=== PATIENT | male | born 1955 | race Caucasian/White ===

== ENCOUNTER → 2018-06-22 10:14 | Outpatient (CLI) | payer MEDICARE, MEDICAID, SELFPAY ==
[2018-06-22 12:43] LABS: Absolute Lymphocyte Count 1.28 X10^3/ul (0.83-4.51); Absolute Neutrophil Count 5.1 X10^3/uL (2.0-7.7); Basophil# 0.03 X10^3/uL; Basophil% 0.4 % (0-1); Eosinophil# 0.28 X10^3/uL; Eosinophils% 3.8 % (0-5); Hematocrit 46.9 % (40-54); Hemoglobin 15.4 g/dl (13.0-16.5); Lymphocyte # 1.28 X10^3/ul (4.0); Lymphocyte % 17.3 % (19-41); Mean Corp Hgb Conc 32.8 g/gl (32-36); Mean Corpuscular Hgb 30.1 pg (27.0-32.0); Mean Corpuscular Volume 91.6 fL (80-94); Mean Platelet Vol. 9.4 fl (6.2-12.0); Monocyte# 0.73 X10^3/uL; Monocyte% 9.8 % (0-10); Neutrophil # 5.09 X10^3/uL (2.7-7.7); Neutrophil % 68.6 % (47-70); POSITIVE COUNT NO; POSITIVE DIFFERENTIAL NO; POSITIVE MORPHOLOGY NO; Platelet Count 263 K/mm3 (150-450); RBC Distribution Width CV 12.8 % (11.6-14.6); RBC Distribution Width SD 43.1 fl (35.1-43.9); Red Blood Count 5.12 M/mm3 (4.6-6.2); White Blood Count 7.4 K/mm3 (4.4-11.0)
[2018-06-22 12:57] LABS: Microalbumin,Random Urine 6.4 mg/L (NO RANGE EST.); Microalbumin:Creatinine Ratio 14.1 mg/g CRE (<30 mg/g CRE)
[2018-06-22 13:42] LABS: AST(SGOT) 15 U/L (15-37); Alanine Aminotransfer ALT/SGPT 30 U/L (16-61); Albumin, Serum 3.9 g/dL (3.2-5.0); Alkaline Phosphatase 61 U/L (45-117); Anion Gap 11 (5-15); BUN 18 mg/dL (7-18); BUN/Creat Ratio 20.2 RATIO (10-20); Calcium,Total 8.9 mg/dL (8.5-10.1); Chloride 104 mmol/L (98-107); Cholesterol 234 mg/dL (200); Creatinine, Serum 0.89 mg/dL (0.70-1.30); EST Glomerular Filtration Rate 91 mL/min (>60); Est Glom Filt Rate - Afr Amer 110 mL/min (>60); Globulin 3.8 g/dL (2.2-4.2); Glucose 107 mg/dL (74-106); High Density Lipoprotein 63 mg/dL; PSA,Total - Annual Screen 4.06 ng/mL (0.00-4.00); Protein, Total 7.7 g/dL (6.4-8.2); Sodium Level 139 mmol/L (136-145); Triglycerides 142 mg/dL; Very Low Density Lipoprotein 28 mg/dL (5-40)
== END ==
LOC: LAB.FUTURE 07-30 09:53 → BFHLAB 08-31 11:37
PROVIDERS: Family Provider Family Medicine; PCP Family Medicine; Visit Provider Family Medicine
DX: I10 Essential (primary) hypertension (principal); E78.5 Hyperlipidemia, unspecified; Z12.5 Encounter for screening for malignant neoplasm of prostate
CPT/HCPCS: 36415; 80053; 80061; 82043; 82570; 84153; 85025; G0103

== ENCOUNTER → 2019-09-25 09:23 | Outpatient (CLI) | payer MEDICARE, SELFPAY ==
[2019-09-25 13:08] LABS: Absolute Lymphocyte Count 1.69 X10^3/uL (0.83-4.51); Absolute Neutrophil Count 5.7 X10^3/uL (2.0-7.7); Basophil# 0.05 X10^3/uL; Basophil% 0.6 % (0-1); Eosinophil# 0.44 X10^3/uL; Eosinophils% 4.9 % (0-5); Hematocrit 46.3 % (40-54); Lymphocyte # 1.69 X10^3/ul (4.0); Lymphocyte % 18.8 % (19-41); Mean Corp Hgb Conc 32.4 g/dL (32-36); Mean Corpuscular Hgb 30.5 pg (27.0-32.0); Mean Corpuscular Volume 94.1 fL (80-94); Mean Platelet Vol. 9.4 fl (6.2-12.0); Monocyte# 1.01 X10^3/uL; Monocyte% 11.3 % (0-10); NRBC Flagged by Analyzer 0 % (0-5); Neutrophil # 5.73 X10^3/uL (2.7-7.7); Neutrophil % 63.8 % (47-70); Platelet Count 279 K/mm3 (150-450); RBC Distribution Width CV 12.4 % (11.6-14.6); RBC Distribution Width SD 42.7 fl (35.1-43.9); Red Blood Count 4.92 M/mm3 (4.6-6.2)
[2019-09-25 13:33] LABS: AST(SGOT) 12 U/L (15-37); Alanine Aminotransfer ALT/SGPT 26 U/L (16-61); Albumin, Serum 3.6 g/dL (3.2-5.0); Alkaline Phosphatase 59 U/L (45-117); Anion Gap 5 (5-15); BUN 28 mg/dL (7-18); BUN/Creat Ratio 26.7 RATIO (10-20); Calcium,Total 9.2 mg/dL (8.5-10.1); Chloride 107 mmol/L (98-107); Cholesterol 218 mg/dL (200); Creatinine, Serum 1.05 mg/dL (0.70-1.30); EST Glomerular Filtration Rate 75 mL/min (>60); Est Glom Filt Rate - Afr Amer 91 mL/min (>60); Globulin 3.6 g/dL (2.2-4.2); Glucose 105 mg/dL (74-106); High Density Lipoprotein 59 mg/dL; PSA,Total - Annual Screen 5.23 ng/mL (0.00-4.00); Potassium 4.2 mmol/L (3.5-5.1); Protein, Total 7.2 g/dL (6.4-8.2); Sodium Level 140 mmol/L (136-145); Triglycerides 151 mg/dL; Very Low Density Lipoprotein 30 mg/dL (5-40)
== END ==
PROVIDERS: PCP Family Medicine; Visit Provider Family Medicine
DX: I10 Essential (primary) hypertension (principal); E78.5 Hyperlipidemia, unspecified; Z12.5 Encounter for screening for malignant neoplasm of prostate
CPT/HCPCS: 36415; 80053; 80061; 84153; 85025; G0103

== ENCOUNTER → 2022-03-31 | Outpatient (CLI) | payer MEDICARE, SELFPAY ==
[2022-03-31 10:19] LABS: Absolute Lymphocyte Count 1.59 X10^3/uL (0.83-4.51); Absolute Neutrophil Count 4.4 X10^3/uL (2.0-7.7); Basophil# 0.04 X10^3/uL; Basophil% 0.6 % (0-1); Eosinophil# 0.35 X10^3/uL; Eosinophils% 4.9 % (0-5); Hemoglobin 15.1 g/dL (13.0-16.5); Lymphocyte # 1.59 X10^3/ul (0.83-4.51); Lymphocyte % 22.1 % (19-41); Mean Corp Hgb Conc 32.8 g/dL (32-36); Mean Corpuscular Hgb 30.1 pg (27.0-32.0); Mean Corpuscular Volume 91.8 fL (80-94); Mean Platelet Vol. 9.2 fl (6.2-12.0); Monocyte# 0.82 X10^3/uL; Monocyte% 11.4 % (0-10); NRBC Flagged by Analyzer 0 % (0-5); Neutrophil # 4.38 X10^3/uL (2.7-7.7); Neutrophil % 60.6 % (47-70); Platelet Count 271 K/mm3 (150-450); RBC Distribution Width CV 12.8 % (11.6-14.6); RBC Distribution Width SD 42.8 fl (35.1-43.9); Red Blood Count 5.01 M/mm3 (4.6-6.2); White Blood Count 7.2 K/mm3 (4.4-11.0)
[2022-03-31 11:05] LABS: AST(SGOT) 13 U/L (15-37); Alanine Aminotransfer ALT/SGPT 22 U/L (16-61); Albumin, Serum 3.6 g/dL (3.2-5.0); Alkaline Phosphatase 54 U/L (45-117); Anion Gap 8 (5-15); BUN 21 mg/dL (7-18); BUN/Creat Ratio 21.9 RATIO (10-20); Calcium,Total 9.3 mg/dL (8.5-10.1); Chloride 105 mmol/L (98-107); Cholesterol 239 mg/dL (200); Creatinine, Serum 0.96 mg/dL (0.70-1.30); EST Glomerular Filtration Rate 83 mL/min (>60); Est Glom Filt Rate - Afr Amer 100 mL/min (>60); Globulin 3.6 g/dL (2.2-4.2); Glucose 109 mg/dL (74-106); High Density Lipoprotein 67 mg/dL; Potassium 3.9 mmol/L (3.5-5.1); Protein, Total 7.2 g/dL (6.4-8.2); Sodium Level 140 mmol/L (136-145); Triglycerides 138 mg/dL; Very Low Density Lipoprotein 28 mg/dL (5-40)
== END | disposition home or self-care (01) ==
PROVIDERS: PCP Family Medicine; Referring Provider Family Medicine; Visit Provider Family Medicine
DX: I10 Essential (primary) hypertension (principal); E78.5 Hyperlipidemia, unspecified; Z12.5 Encounter for screening for malignant neoplasm of prostate
CPT/HCPCS: 36415; 80053; 80061; 84153; 85025; G0103

== ENCOUNTER → 2022-10-14 | Outpatient (CLI) | payer MEDICARE, SELFPAY ==
[2022-10-14 12:41] LABS: PSA,Total- Diagnostic 9.42 ng/mL (0.0-4.0)
== END | disposition home or self-care (01) ==
LOC: BFHLAB 10:37
PROVIDERS: PCP Family Medicine; Visit Provider Family Medicine
DX: R97.20 Elevated prostate specific antigen [PSA] (principal)
CPT/HCPCS: 36415; 84153

== ENCOUNTER → 2023-06-02 | Outpatient (CLI) | payer MEDICARE, MEDICAID, SELFPAY ==
[2023-06-02 12:20] LABS: Absolute Lymphocyte Count 1.43 X10^3/uL (0.83-4.51); Absolute Neutrophil Count 4.2 X10^3/uL (2.0-7.7); Basophil# 0.04 X10^3/uL; Basophil% 0.6 % (0-1); Eosinophil# 0.33 X10^3/uL; Eosinophils% 4.8 % (0-5); Hematocrit 45.6 % (40-54); Hemoglobin 14.7 g/dL (13.0-16.5); Lymphocyte # 1.43 X10^3/ul (0.83-4.51); Lymphocyte % 20.6 % (19-41); Mean Corp Hgb Conc 32.2 g/dL (32-36); Mean Corpuscular Hgb 29.5 pg (27.0-32.0); Mean Corpuscular Volume 91.6 fL (80-94); Mean Platelet Vol. 9.5 fl (6.2-12.0); Monocyte# 0.95 X10^3/uL; Monocyte% 13.7 % (0-10); NRBC Flagged by Analyzer 0 % (0-5); Neutrophil # 4.15 X10^3/uL (2.7-7.7); Neutrophil % 59.7 % (47-70); Platelet Count 279 K/mm3 (150-450); RBC Distribution Width CV 12.9 % (11.6-14.6); RBC Distribution Width SD 42.8 fl (35.1-43.9); Red Blood Count 4.98 M/mm3 (4.6-6.2); White Blood Count 6.9 K/mm3 (4.4-11.0)
[2023-06-02 12:53] LABS: ALB/GLOB Ratio 0.9 RATIO (0.9-2.4); AST(SGOT) 14 U/L (15-37); Alanine Aminotransfer ALT/SGPT 29 U/L (16-61); Albumin, Serum 3.6 g/dL (3.2-5.0); Alkaline Phosphatase 54 U/L (45-117); Anion Gap 6 (5-15); BUN 19 mg/dL (7-18); BUN/Creat Ratio 19.4 RATIO (10-20); Calcium,Total 9.1 mg/dL (8.5-10.1); Chloride 106 mmol/L (98-107); Cholesterol 241 mg/dL (200); Creatinine, Serum 0.98 mg/dL (0.70-1.30); EST Glomerular Filtration Rate 81 mL/min (>60); Est Glom Filt Rate - Afr Amer 97 mL/min (>60); Globulin 3.8 g/dL (2.2-4.2); Glucose 102 mg/dL (74-106); High Density Lipoprotein 62 mg/dL; PSA,Total - Annual Screen 9.04 ng/mL (0.00-4.00); Potassium 4.2 mmol/L (3.5-5.1); Protein, Total 7.4 g/dL (6.4-8.2); Sodium Level 139 mmol/L (136-145); Triglycerides 149 mg/dL; Very Low Density Lipoprotein 30 mg/dL (5-40)
== END | disposition home or self-care (01) ==
LOC: BFHLAB 10:15
PROVIDERS: PCP Family Medicine; Visit Provider Family Medicine
DX: I10 Essential (primary) hypertension (principal); E78.5 Hyperlipidemia, unspecified; Z12.5 Encounter for screening for malignant neoplasm of prostate
CPT/HCPCS: 36415; 80053; 80061; 84153; 85025; G0103

== ENCOUNTER 2024-11-02 07:41 | Emergency (ER) | payer MEDICARE, MEDICAID, SELFPAY ==
[2024-11-02 07:42] VITALS: BP 174/112; PULSE 93; RESP 18; TEMP 36.4; O2SAT 100; BMI 29.2
--- NOTE | 2024-11-02 07:55 | EDS_ITS ---
HPI History of Present Illness Chief Complaint: Complaint Detail of Chief Complaint: Urinary retention Informant: patient Narrative Narrative: Patient presents to the emergency department complaint of inability urinate since around 11 PM last night. Patient has not had this issue before. Denies recent illness. Describes lower abdominal discomfort. He denies fever or dysuria. [facility] Medical History (Updated 11/02/24 @ 09:[address] Duran Fabian, DO) Hypertension Home Medications ?Medication ?Instructions ?Recorded ?Last Taken ?Type azelastine 0.05 % eye drops 1 drp ophthalmic (eye) BID 11/02/24 Unknown History lisinopril 40 mg tablet 40 mg PO DAILY 11/02/24 03/2 0 History metoprolol succinate 100 mg 100 mg PO DAILY 11/02/24 0 11/01/24 History tablet,extended release 24 hr
--- NOTE | 2024-11-02 07:55 | EX.ED.GUMALE ---
HPI History of Present Illness Chief Complaint: Complaint Detail of Chief Complaint: Urinary retention Informant: patient Narrative Narrative: Patient presents to the emergency department complaint of inability urinate since around 11 PM last night. Patient has not had this issue before. Denies recent illness. Describes lower abdominal discomfort. He denies fever or dysuria. [facility] Medical History (Updated 11/02/24 @ 09:[address] Duran Fabian, DO) Hypertension Home Medications ?Medication ?Instructions ?Recorded ?Last Taken ?Type azelastine 0.05 % eye drops 1 drp ophthalmic (eye) BID 11/02/24 Unknown History lisinopril 40 mg tablet 40 mg PO DAILY 11/02/24 11/01/24 History metoprolol succinate 100 mg 100 mg PO DAILY 11/02/24 11/01/24 History tablet,extended release 24 hr Allergy/AdvReac Type Severity Reaction Status Date / Time No Known Allergies Allergy Verified 11/02/24 09:02 Social History Smoking Status: Never smoker ROS ROS ED Review of Systems ROS Unobtainable: other Constitutional Constitutional ED: Reports lethargy; Denies chills, fever(s), sweats or weight loss Eyes Eyes: Denies blurry vision, change in vision or diplopia ENT ENT ED: Denies rhinorrhea or sore throat Cardiovascular Cardiovascular: Denies chest pain, orthopnea or racing heartbeat Respiratory/Chest Respiratory/Chest: Denies cough, dyspnea, dyspnea on exertion, orthopnea or sputum Gastrointestinal Gastrointestinal: Reports abdominal pain; Denies diarrhea, nausea or vomiting Genitourinary Genitourinary ED: Reports other Details: Urinary retention ; Denies dysuria, hematuria or urinary frequency Musculoskeletal Musculoskeletal: Denies arthralgias, back pain, myalgias or neck pain Integumentary Denies abscess, Abrasions or rash Neurologic Neurologic: Denies headache(s) or weakness Psychiatric Psychiatric: Denies anxiety, depression or suicidal thoughts Endocrine Endocrinology: Denies polydipsia, polyphagia or polyuria Hematologic/Lymphatic Hematologic/Lymphatic: Denies easy bleeding, easy bruising or lymphadenopathy Allergic/Immunologic Allergic/Immunologic ED: Denies mouth swelling, tongue swelling or urticaria EXAM Physical Exam Const Vital Signs: 11/02/24 07:42 11/02/24 09:00 11/02/24 09:01 Temperature 97.6 F L 97.9 F Temperature Source Temporal Oral Pulse Rate 93 83 84 Respiratory Rate 18 16 16 Blood Pressure 174/112 H 156/84 H 156/84 H Blood Pressure Mean 132 108 108 Pulse Ox 100 95 96 Oxygen Delivery Method Room Air Room Air Room Air Positive well nourished and well developed General Appearance ED: well developed and NAD HEENT Reports TM's clear and moist mucous membranes normocephalic and atraumatic; Negative for trauma or tenderness Tympanic Membrane ED: Yes TM's clear Eyes PERRL and EOMs intact bilaterally General Eye ED: Negative for pale conjunctiva or scleral icterus Neck no lymphadenopathy, supple and no JVD General: Negative for tenderness Chest Wall inspection of chest normal and palpation of chest normal Chest: Negative for tenderness Resp normal respiratory effort and clear to auscultation bilaterally Effort and Inspection: Negative for respiratory distress or pain with movement Auscultation: Negative for rhonchi, wheezes or diminished lung sounds Cardio regular rate, regular rhythm, S1 normal heart sound, S2 normal heart sound and no murmurs Peripheral Pulses: pulses 2+ throughout GI normal to inspection, nondistended, normoactive bowel sounds, soft to palpation, non-distended and no masses GI Narrative: Mild fullness in the suprapubic region with diffuse tenderness on exam. There is no rebound, rigidity, or peritoneal signs Back/Spine no CVA tenderness and no thoracic nor lumbar tenderness Extremity normal to inspection General Extremety ED: Negative for edema General Extremity: Negative for edema Neuro oriented x3, CN's II-XII intact bilaterally, no sensory deficits noted and gait normal Sensorium / Orientation: awake, alert, oriented to person, oriented to place and oriented to time Motor Exam: strength 5/5 throughout and strength abnormal Psych mental status grossly normal Skin no rashes or lesions noted and no wounds MDM MDM MDM Narrative Medical decision making narrative: Patient presents with inability p.m. last night. No prior history of retention. No prior episodes of retention. Tells me he had history of elevated PSA but then they were just being followed and they seem to come back down. Denies fever or urinary symptoms otherwise. No other significant complaints. Bladder scan obtained showed greater than 600 cc of urine. Patient had a Mccormick catheter placed. More than 1200 cc of urine was drained. Patient felt immediate relief. Chemistries were unremarkable. Urinalysis showed 50-100 RBCs and 10-25 WBCs without signs of infection. Urine culture sent. Patient will be given a leg bag. I suspect the microscopic hematuria likely due to bladder distention. Patient will be given a leg bag. Patient will be advised to follow-up with urology and I will give him the referral. Lab Data Labs: Laboratory Results - last 24 hr 11/02/24 11/02/24 08:10 08:11 Sodium 136 Potassium 4.1 Chloride 103 Carbon Dioxide 20.3 L Anion Gap 14 BUN 18 Creatinine 0.84 Estim Creat Clear Calc 92.20 Est GFR (MDRD) Non-Af 93 BUN/Creatinine Ratio 21.2 H Glucose 169 H Calcium 9.1 Urine Color Red Urine Clarity Turbid Urine pH 5.0 Ur Specific [place] 1.020 Urine Protein 500 H Urine Glucose (UA) Normal Urine Ketones Negative Urine Occult Blood 250 H Urine Nitrite Negative Urine Bilirubin Negative Urine Urobilinogen Normal Ur Leukocyte Esterase 100 H Urine RBC 50-100 SEEN Urine WBC 10-25 SEEN Ur Squamous Epith Cells 0 SEEN Urine Bacteria 0 SEEN Urine Mucus 0 SEEN Discharge Plan Triage Chief Complaint: Complaint ED Provider: Duran Fabian Dx/Rx/DC Orders Clinical Impression: Acute urinary retention Instructions: ED Mccormick Catheter, Care, ED Urinary Retention, Male Prescriptions: No Action azelastine 0.05 % drops 1 drp ophthalmic (eye) BID metoprolol succinate 100 mg tablet extended release 24 hr 100 mg PO DAILY lisinopril 40 mg tablet 40 mg PO DAILY Primary Care Provider: Hermann Araiza Referrals: Guilherme Skelton MD [Med Staff - Active Staff] - 3-5 Days Hermann Araiza DO [Primary Care Provider] - Print Language: Indonesian Disposition Disposition: Home, Self Care
[2024-11-02 08:16] LABS: Bacteria 0 SEEN /hpf (None Seen); Mucous, Urine 0 SEEN /hpf (<or=2+); Squamous Epithelial Cells - UA 0 SEEN /hpf (0-5)
[2024-11-02 08:22] LABS: Color, Urine Red (Yellow); Glucose, Dipstick Normal (Normal); Ketone-Dipstick Negative (Negative); Leukocyte Esterase-Dipstick 100 /ul (Negative); Nitrite-Dipstick Negative (Negative); Occult Blood-Urine 250 /ul (Negative); Protein-Dipstick 500 mg/dl (Negative); Urine Bilirubin Dipstick Negative (Negative); Urine Clarity Turbid (Clear); Urine Urobilinogen Normal (Normal)
[2024-11-02 08:28] LABS: Red Blood Cells-Urine 50-100 SEEN /hpf (0-5)
[2024-11-02 08:29] LABS: White Blood Cells 10-25 SEEN /hpf (0-5)
[2024-11-02 08:52] LABS: Anion Gap 14 (5-15); BUN 18 mg/dL (4-19); BUN/Creat Ratio 21.2 RATIO (10-20); Calcium,Total 9.1 mg/dL (7.6-11.0); Carbon Dioxide 20.3 mmol/L (21.0-32.0); Chloride 103 mmol/L (98-108); Creatinine, Serum 0.84 mg/dL (0.70-1.20); EST Glomerular Filtration Rate 93 (>60); Glucose 169 mg/dL (70-99); Potassium 4.1 mmol/L (3.3-5.1); Sodium Level 136 mmol/L (133-145)
[2024-11-02 09:00] VITALS: BP 156/84; PULSE 83; RESP 16; TEMP 36.6; O2SAT 95
[2024-11-02 09:01] VITALS: BP 156/84; PULSE 84; RESP 16; O2SAT 96
[2024-11-02 09:44] VITALS: BP 150/91; PULSE 82; RESP 16; TEMP 36.5; O2SAT 96
--- NOTE | 2024-11-02 09:44 | ED.RN ---
PT SENT HOME WITH LEG BG, NEW LEG ATTACHMENT, AND ALL NEDS TO CHANGE HIS CATH BAG NEEDED. FOLLOW UP WITH UROLOGY; ADVISED TO CALL TODAY FOR AN APPT.
== END 2024-11-02 09:45 | disposition home or self-care (01) ==
PROVIDERS: Emergency Provider Emergency Medicine; PCP Family Medicine; Visit Provider Emergency Medicine
DX: R33.9 Retention of urine, unspecified (principal); R10.9 Unspecified abdominal pain; I10 Essential (primary) hypertension
CPT/HCPCS: 51702; 80048; 81001; 99284; A4216

== ENCOUNTER 2024-11-13 05:18 | Emergency (ER) | payer MEDICARE, MEDICAID, SELFPAY ==
[2024-11-13 05:18] VITALS: BP 199/111; PULSE 103; RESP 16; TEMP 36.4; O2SAT 95; BMI 28.8
--- NOTE | 2024-11-13 05:27 | EX.ED.GUMALE ---
HPI History of Present Illness Chief Complaint: Complaint Informant: patient and spouse/S.O. Pain Onset: Today Context: Gradual Onset Timing: Continuous Current Severity: Moderate Maximum Severity: Moderate Narrative Narrative: 69-year-old male history of BPH. A week ago presented emergency department. A Mccormick catheter placed for urinary retention. It was removed by his urologist, Dr. Nicholas Skelton, yesterday which was November 12. Patient's unable to pee and is having suprapubic discomfort this morning. He said there was a small amount of blood. No prior prostate surgery or bladder surgery. He is currently on Flomax. Prior similar symptoms: Yes Recent Illness/Hospitalization: No PFSH PFS Medical History Urinary retention Hypertension Home Medications ?Medication ?Instructions ?Recorded ?Last Taken ?Type lisinopril 40 mg tablet 40 mg PO DAILY 11/02/24 11/01/24 History metoprolol succinate 100 mg 100 mg PO QHS 11/02/24 11/01/24 History tablet,extended release 24 hr ciprofloxacin HCl 500 mg tablet 500 mg PO BID 10 days #20 tabs 11/13/24 Unknown Rx (Cipro) tamsulosin 0.4 mg capsule 0.4 mg PO QHS 11/13/24 Unknown History Allergy/AdvReac Type Severity Reaction Status Date / Time No Known Allergies Allergy Verified 11/13/24 05:19 Social History Smoking Status: Never smoker ROS ROS ED ROS Narrative Denies recent illness. Constitutional Constitutional ED: Denies chills or fever(s) Eyes Eyes: Denies blurry vision ENT ENT ED: Denies ear pain Cardiovascular Cardiovascular: Denies chest pain Respiratory/Chest Respiratory/Chest: Denies cough Gastrointestinal Gastrointestinal: Denies abdominal pain, constipation, diarrhea, melena, nausea or vomiting Genitourinary Genitourinary ED: Reports hematuria and other Details: Unable to urinate. Musculoskeletal Musculoskeletal: Denies arthralgias or back pain Integumentary Denies abscess Neurologic Neurologic: Denies headache(s) Psychiatric Psychiatric: Denies anxiety Endocrine Endocrinology: Denies polydipsia Hematologic/Lymphatic Hematologic/Lymphatic: Denies easy bleeding Allergic/Immunologic Allergic/Immunologic ED: Denies mouth swelling, tongue swelling or urticaria EXAM Physical Exam Narrative Exam Narrative: 69-year-old male lying in bed. Vital signs are stable afebrile. at bedside. H EENT exam pupils round reactive light. Extra motions are intact. Neck nontender no lymphadenopathy. Lungs clear to auscultation bilaterally. Heart regular rhythm no murmur. Chest wall nontender. Abdomen suprapubic tenderness bladder distention. Bladder scan shows distended bladder 747 mL. External exam unremarkable. No gross blood. Moving all 4 extremities. Nontender no edema. Normal strength. Patient is awake alert. No focal motor deficits. Const Vital Signs: 11/13/24 05:18 Temperature 97.5 F L Temperature Source Axillary Pulse Rate 103 H Respiratory Rate 16 Blood Pressure 199/111 H Blood Pressure Mean 140 Pulse Ox 95 Positive well nourished and well developed; Negative for cachectic, contractures or unkempt General Appearance ED: well developed; Negative for unkempt, cachectic, contractures or pallor Nutritional Appearance: Negative for cachectic HEENT Reports moist mucous membranes normocephalic and atraumatic Eyes PERRL and EOMs intact bilaterally Neck no lymphadenopathy, supple and no JVD Resp normal respiratory effort and clear to auscultation bilaterally Effort and Inspection: Negative for retractions Auscultation: Negative for rales, rhonchi, wheezes or diminished lung sounds Cardio regular rate, regular rhythm, S1 normal heart sound, S2 normal heart sound and no murmurs Rate: Negative for bradycardia or tachycardic Rhythm: Negative for abnormal rhythm GI no masses; Negative for non-tender or non-distended GI Narrative: Distended bladder. Suprapubic tenderness. Palpation: soft and tender; Negative for guarding or hepatomegaly no CVA tenderness Back/Spine no CVA tenderness General Back: Negative for CVA tenderness Cervical Spine: Negative for cervical spine tenderness Thoracic Spine / Upper Back: Negative for thoracic spinal tenderness Lumbar Spine / Lower Back: Negative for lumbar spinal tenderness Extremity normal to inspection General Extremety ED: Negative for edema or tenderness General Extremity: Negative for edema Neuro oriented x3, CN's II-XII intact bilaterally, moves all extremities and no focal motor deficits Sensorium / Orientation: alert, oriented to person, oriented to place and oriented to time; Negative for orientation impaired, confused, lethargic or stuporous Motor Exam: strength 5/5 throughout Psych mental status grossly normal Appearance: Negative for unkempt Thought Process: normal thought process Thought Content: normal thought content Skin General Skin Exam: Negative for jaundice or pallor Lesions: no lesions Rashes: no rashes MDM MDM MDM Narrative Medical decision making narrative: 69-year-old male urinary retention history of BPH. Bladder scan showed about 747 mL of urine. Nurses are placed a 22 Serbian Mccormick catheter due to the blood. Will send a UA. Repeat exam patient doing well at 5:43 AM. Feels much better nurses were able to place a Mccormick catheter. He has cloudy urine there is a small amount of blood no clots. He is put out about 750 cc of urine so far. His pain is resolved. We are awaiting the urinalysis. He understands he will be discharged with a catheter in place and follow-up with his urologist. Patient is already on Flomax. Patient doing well at 6:23 AM. We went over his test results. He will be started on antibiotic. Outpatient follow-up. History & Record Review Discussion w/independent historian: Patient and Family Additional record(s) reviewed:: Prior inpatient record, Prior outpatient record, Prior ED visit and Prior labs Lab Data Attestation: I reviewed the patient's lab results. Lab results narrative: Urinalysis shows UTI. 250 occult blood. No nitrites. 50-100 red cells. Greater than 100 white cells. 2+ bacteria. Treated as a UTI. Cipro 500 twice daily. Urine culture sent. Labs: Laboratory Results - last 24 hr 11/13/24 05:34 Urine Color Yellow Urine Clarity Cloudy Urine pH 6.0 Ur Specific [place] 1.025 Urine Protein 30 H Urine Glucose (UA) Normal Urine Ketones Negative Urine Occult Blood 250 H Urine Nitrite Negative Urine Bilirubin Negative Urine Urobilinogen Normal Ur Leukocyte Esterase 500 H Urine RBC 50-100 SEEN Urine WBC >100 SEEN Ur Squamous Epith Cells 0-5 SEEN Urine Bacteria 2+ Urine Mucus 0 SEEN Discharge Plan Triage Chief Complaint: Complaint ED Provider: Evens Portillo Dx/Rx/DC Orders Clinical Impression: Acute urinary retention, History of BPH, History of hypertension, Urinary tract infection Instructions: Urinary Tract Infections in Men, ED Urinary Retention, Male Prescriptions: New ciprofloxacin HCl [Cipro] 500 mg tablet 500 mg PO BID 10 Days Qty: 20 0RF No Action metoprolol succinate 100 mg tablet extended release 24 hr 100 mg PO QHS lisinopril 40 mg tablet 40 mg PO DAILY tamsulosin 0.4 mg capsule 0.4 mg PO QHS Primary Care Provider: Hermann Araiza Referrals: Guilherme Skelton MD [Med Staff - Active Staff] - As soon as possible Hermann Araiza, [Primary Care Provider] - Activity Restrictions/Additional Instructions: Leave the catheter in place. Call and follow-up with your urologist Dr. Nicholas Skelton soon as possible. Looks like you have a urinary tract infection. Will send a urine culture. You will be started on the antibiotics Cipro 1 pill twice a day for 10 days. Your prescription was sent to [facility]. Print Language: Kyrgyz Disposition Disposition: Home, Self Care
[2024-11-13 05:39] LABS: Color, Urine Yellow (Yellow); Glucose, Dipstick Normal (Normal); Ketone-Dipstick Negative (Negative); Leukocyte Esterase-Dipstick 500 /ul (Negative); Mucous, Urine 0 SEEN /hpf (<or=2+); Nitrite-Dipstick Negative (Negative); Occult Blood-Urine 250 /ul (Negative); Protein-Dipstick 30 mg/dl (Negative); Specific Gravity, Urine 1.025 (1.002-1.030); Urine Bilirubin Dipstick Negative (Negative); Urine Clarity Cloudy (Clear); Urine Urobilinogen Normal (Normal)
[2024-11-13 06:16] LABS: Bacteria 2+ /hpf (None Seen); Red Blood Cells-Urine 50-100 SEEN /hpf (0-5); Squamous Epithelial Cells - UA 0-5 SEEN /hpf (0-5); White Blood Cells >100 SEEN /hpf (0-5)
[2024-11-13] MEDS: Ciprofloxacin 500 MG Tablet PO (06:30)
[2024-11-13 06:38] VITALS: BP 148/78; PULSE 81; RESP 16; TEMP 36.6; O2SAT 99
== END 2024-11-13 06:39 | disposition home or self-care (01) ==
PROVIDERS: Emergency Provider Emergency Medicine; PCP Family Medicine; Visit Provider Emergency Medicine
DX: N40.1 Benign prostatic hyperplasia with lower urinary tract symptoms (principal); I10 Essential (primary) hypertension; R33.8 Other retention of urine; N39.0 Urinary tract infection, site not specified
CPT/HCPCS: 51702; 81001; 99283; A4216

== ENCOUNTER 2024-12-05 05:17 | Emergency (ER) | payer MEDICARE, MEDICAID, SELFPAY ==
[2024-12-05 05:18] VITALS: BP 164/93; PULSE 89; RESP 18; TEMP 36.1; O2SAT 99
--- NOTE | 2024-12-05 06:22 | EX.ED.DYSGE1 ---
HPI History of Present Illness Chief Complaint: Mccormick C/O Informant: patient, spouse/S.O. 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 He underwent a TURP on Tuesday. He states he has had a catheter in place since that time and has been having bloody urination which he was told would be normal. However he has been noticing clots over the last 24 hours. He states that he emptied his bag last evening and then went to bed. When he woke this morning there is no urine in the bag and he was leaking around the catheter. With concern for obstruction EMS was called and he was brought in for evaluation [facility] Medical History Urinary retention Hypertension Home Medications ?Medication ?Instructions ?Recorded ?Last Taken ?Type lisinopril 40 mg tablet 40 mg PO DAILY 11/02/24 11/01/24 History metoprolol succinate 100 mg 100 mg PO QHS 11/02/24 11/01/24 History tablet,extended release 24 hr ciprofloxacin HCl 500 mg tablet 500 mg PO BID 10 days #20 tabs 11/13/24 Unknown Rx (Cipro) tamsulosin 0.4 mg capsule 0.4 mg PO QHS 11/13/24 Unknown History dutasteride 0.5 mg capsule 0.5 mg PO DAILY 12/05/24 Unknown History Allergy/AdvReac Type Severity Reaction Status Date / Time No Known Allergies Allergy Verified 12/05/24 05:17 Family History no significant family his Social History Smoking Status: Never smoker ROS ROS ED Constitutional Constitutional ED: Denies chills or fever(s) ENT ENT ED: Denies sore throat Cardiovascular Cardiovascular: Denies chest pain Respiratory/Chest Respiratory/Chest: Denies cough or dyspnea Gastrointestinal Gastrointestinal: Denies abdominal pain, diarrhea, nausea or vomiting Genitourinary Genitourinary ED: Reports hematuria and other Details: Positive catheter malfunction Musculoskeletal Musculoskeletal: Denies back pain Integumentary Denies rash Neurologic Neurologic: Denies headache(s) Hematologic/Lymphatic Hematologic/Lymphatic: Denies easy bleeding or easy bruising EXAM Physical Exam Const Vital Signs: 12/05/24 05:18 Temperature 97 F L Temperature Source Temporal Pulse Rate 89 Respiratory Rate 18 Blood Pressure 164/93 H Blood Pressure Mean 116 Pulse Ox 99 Oxygen Delivery Method Room Air Positive well nourished and well developed General Appearance ED: well developed; Negative for pallor HEENT HEENT Narrative: Normocephalic atraumatic Eyes PERRL and EOMs intact bilaterally General Eye ED: Negative for pale conjunctiva Neck supple Resp normal respiratory effort and clear to auscultation bilaterally Cardio regular rate and regular rhythm GI normal to inspection, nondistended, normoactive bowel sounds, non-tender, non-distended and no masses GI Narrative: No organomegaly noted to suggest acute urinary retention/bladder distention Auscultation: normoactive bowel sounds Palpation: soft Narrative: Mccormick catheter in place. There is blood-tinged urine leaking around the catheter insertion at the urethral meatus. Otherwise no testicular swelling or masses. No overlying soft tissue changes to suggest Elaine's gangrene. Back/Spine no CVA tenderness Extremity normal to inspection Neuro oriented x3, CN's II-XII intact bilaterally and no sensory deficits noted Sensorium / Orientation: alert Psych mental status grossly normal Skin no rashes or lesions noted General Skin Exam: Negative for jaundice or pallor MDM MDM MDM Narrative Medical decision making narrative: Patient arrived to the ER hypertensive but has a past medical history of this. He reported roughly 8 hours since he last emptied his Mccormick catheter bag. I have low concern for obstructive nephropathy as he is continuing to drain his bladder except it is now leaking around the catheter instead of flowing through it. There is high concern for obstruction secondary to clots. Therefore the catheter was flushed by the nursing staff. After doing this there was expression of multiple blood clots and after they were removed there was normal flow of urine through the catheter. Patient no longer had leakage around the catheter at the urethral meatus opening and he reported feeling much better. Therefore at this time with resolution of the obstructed Mccormick catheter there is no need for emergent urology evaluation or a Mccormick catheter replacement and he is otherwise safe for discharge History & Record Review Discussion w/independent historian: EMS personnel, Patient and Significant other Discharge Plan Triage Chief Complaint: Mccormick C/O ED Provider: David Ames Dx/Rx/DC Orders Clinical Impression: Obstructed Mccormick catheter, Hypertension, BPH (benign prostatic hyperplasia) Instructions: ED Mccormick Catheter, Care Prescriptions: No Action metoprolol succinate 100 mg tablet extended release 24 hr 100 mg PO QHS lisinopril 40 mg tablet 40 mg PO DAILY tamsulosin 0.4 mg capsule 0.4 mg PO QHS ciprofloxacin HCl [Cipro] 500 mg tablet 500 mg PO BID 10 Days Qty: 20 0RF dutasteride 0.5 mg capsule 0.5 mg PO DAILY Primary Care Provider: Heramnn Araiza Referrals: Guilherme Skelton MD [Med Staff - Active Staff] - Hermann Araiza DO [Primary Care Provider] - Activity Restrictions/Additional Instructions: Please follow-up with your urologist/surgeon as previously directed. If your catheter becomes obstructed once again please return to the ER for repeat evaluation Print Language: Azerbaijani Disposition Disposition: Home, Self Care
[2024-12-05 06:23] VITALS: BP 138/90; PULSE 73; RESP 18; TEMP 36.8; O2SAT 98
== END 2024-12-05 06:28 | disposition home or self-care (01) ==
PROVIDERS: Emergency Provider Emergency Medicine; PCP Family Medicine; Visit Provider Emergency Medicine
DX: T83.091A Other mechanical complication of indwelling urethral catheter, initial encounter (principal); R31.9 Hematuria, unspecified; R33.9 Retention of urine, unspecified; I10 Essential (primary) hypertension; N40.0 Benign prostatic hyperplasia without lower urinary tract symptoms
CPT/HCPCS: 99284

== ENCOUNTER → 2025-03-19 | Outpatient (CLI) | payer MEDICARE, MEDICAID, SELFPAY ==
[2025-03-19 13:14] LABS: PSA,Total - Annual Screen 1.25 ng/mL (0.02-4.00)
--- OUTSIDE RECORDS SUMMARY | 2025-03-19 19:00 | XMS RPT_ITS | CCD ---
Author Organization [facility] Partnership [facility] Care Team Providers Care Retail Salesworker Name Role Phone Dr. Carmen Araiza DO Primary Care Provider Dr. Duran Fabian DO Emergency Provider [phone] Carne DE LEON, Dr. Garzon Attending Provider [phone] Bandar ALEXANDER, Dr. Horner Emergency Provider Duran Fabian Attending Unavailable Carmen Araiza Primary Care Unavailable Evens Portillo Attending Unavailable Carmen Araiza Primary Care Unavailable Carmen Araiza Primary Care Unavailable David Ames Attending Unavailable ALANIS ALEXANDER, DR SANNA BAILEY Attending Maria Elena ARAIZA DO, DR CARMEN Casanova Primary Care Unavailab kurt THAPA MD, DR SANNA BAILEY Admitting Maria Elena THAPA MD, DR SANNA BAILEY Attending Maria Elena ARAIZA DO, DR CARMEN Casanova Primary Care Unavailab le Medications Current Medications Medication Drug Class(es) Dates Sig (Normalized) Sig (Original) ciprofloxacin 500 mg oral tablet (1 source) Quinolone Antimicrobial Start: 11-13-2024 take 1 tablet by mouth twice daily Ciprofloxacin Hcl (Cipro) 500 mg tablet Active 500 mg PO TWICE A DAY 03 06November 13, 2024 12:00am lisinopril 40 mg oral tablet (2 sources) Angiotensin Converting Enzyme Inhibitor Start: 11-02-2024 take 1 tablet by mouth once daily Lisinopril 40 mg tablet Active 40 mg PO DAILY November 02, 2024 12:00am 24 hr metoprolol succinate 100 mg extended release oral tablet (2 sources) beta-Adrenergic Dash Start: 11-02-2024 take 1 tablet by mouth every twenty-four hours at bedtime Metoprolol Succinate 100 mg tablet extended release 24 hr Active 100 mg PO AT BEDTIME November 02, 2024 12:00am Start: 11-02-2024 take 1 tablet by cherry th once daily Metoprolol Succinate 100 mg tablet extended release 24 hr Active 100 mg PO DAILY November 02, 2024 12:00am tamsulosin hydrochloride 0.4 mg oral capsule (1 source) alpha-Adrenergic Dash Start: 11-13-2024 take 1 capsule by mouth at bedtime Tamsulosin 0.4 mg capsule Active 0.4 mg PO AT BEDTIME November 13, 2024 12:00am Completed/Discontinued Medications Medication Drug Class(es) Dates Sig (Normalized) Sig (Original) azelastine hydrochloride 0.5 mg/ml ophthalmic solution (2 sources) Histamine-1 Receptor Antagonist Start: 11-02-2024 End: 11-13-2024 Azelastine 0.05 % drops Discontinued 1 NMA OPHTHALMIC TWICE A DAY November 02, 2024 12:00am November 13, 2024 5:22am Problems Problem Classification Problem Date Documented Da te Episodic/Chronic Essential hypertension (1 source) Essential (primary) hypertension; Translations: [Essential (primary) hypertension] Onset: 11-30-2024 Chronic Genitourinary symptoms and ill-defined conditions (5 sources) Acute retention of urine ; Translations: [Other retention of urine] Onset: 11-30-2024 11-02-2024 Episodic Hyperplasia of prostate (1 source) Benign prostatic hyperplasia with lower urinary tract symptoms; Translations: [Benign prostatic hyperplasia with lower urinary tract symptoms] Onset: 11-30-2024 Chronic Other aftercare (1 source) Encounter for therapeutic drug level monitoring; Translations: [Encounter for therapeutic drug level monitoring] Onset: 11-30-2024 Episodic Other aftercare (1 source) Other fci (current) drug therapy; Translations: [Other fci (current) drug therapy] Onset: 11-30-2024 Episodic Other circulatory disease (1 source) H/O: hypertension; Translations: [Personal history of other diseases of the circulatory system] 11-13-2024 Episodic Other male genital disorders (1 source) H/O: male genital disorder; Translations: [Personal history of other diseases of male genital organs] 11-13-2024 Episodic Screening and history of mental health and substance abuse codes (1 source) Personal history of nicotine dependence; Translations: [Personal history of nicotine dependence] Onset: 11-30-2024 Episodic Urinary tract infections (1 source) Urinary tract infectious disease; Translations: [Urinary tract infection, site not specified] 11-13-2024 Episodic Results Test Name Value Interpretation Reference Range Facility Emergency Department Summary on 12-05-2024 Emergency Department Summary [facility] Medical Records Department [address] [place] [address] Emergency Department Summary 12/05/24 MR#: [id number] Acct: [id number] Name: ANGE ZUNIGA Rep #: [id number] : 1955 69 From: David Ames DO PCP: Dr. Carmen Araiza, DO Status:REG ER Location: ED HPI History of Present Illness Chief Complaint: Mccormick C/O Informant: patient, spouse/S.O. 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 He underwent a TURP on Tuesday. He states he has had a catheter in place since that time and has been having bloody urination which he was told would be normal. However he has been noticing clots over the last 24 hours. He states that he emptied his bag last evening and then went to bed. When he woke this morning there is no urine in the bag and he was leaking around the catheter. With concern for obstruction EMS was called and he was brought in for evaluation [facility] Medical History Urinary retention Hypertension Home Medications ???Medication ???Instructions ???Recorded ???Last Taken ???Type lisinopril 40 mg tablet 40 mg PO DAILY 11/02/24 11/01/24 H istory metoprolol succinate 100 mg 100 mg PO QHS 11/02/24 11/01/24 Hi story tablet,extended release 24 hr ciprofloxacin HCl 500 mg tablet 500 mg PO BID 10 days #20 tabs 09/08 Unknown Rx (Cipro) tamsulosin 0.4 mg capsule 0.4 mg PO QHS 11/13/24 Unknown His tory dutasteride 0.5 mg capsule 0.5 mg PO DAILY 12/05/24 Unknown H istory Allergy/AdvReac Type Severity Reaction Status Date / Time No Known Allergies Allergy Verified 12/05/24 05:17 Family History no significant family his Social History Smoking Status: Never smoker ROS ROS ED Constitutional Constitutional ED: Denies chills or fever(s) ENT ENT ED: Denies sore throat Cardiovascular Cardiovascular: Denies chest pain Respiratory/Chest Respiratory/Chest: Denies cough or dyspnea Gastrointestinal Gastrointestinal: Denies abdominal pain, diarrhea, nausea or vomiting Genitourinary Genitourinary ED: Reports hematuria and other Details: Positive catheter malfunction Musculoskeletal Musculoskeletal: Denies back pain Integumentary Denies rash Neurologic Neurologic: Denies headache(s) Hematologic/Lymphatic Hematologic/Lymphatic: Denies easy bleeding or easy bruising EXAM Physical Exam Const Vital Signs: 12/05/24 05:18 Temperature 97 F L Temperature Source Temporal Pulse Rate 89 Respiratory Rate 18 Blood Pressure 164/93 H Blood Pressure Mean 116 Pulse Ox 99 Oxygen Delivery Method Room Air Positive well nourished and well developed General Appearance ED: well developed; Negative for pallor HEENT HEENT Narrative: Normocephalic atraumatic Eyes PERRL and EOMs intact bilaterally General Eye ED: Negative for pale conjunctiva Neck supple Resp normal respiratory effort and clear to auscultation bilaterally Cardio regular rate and regular rhythm GI normal to inspection, nondistended, normoactive bowel sounds, non-tender, non-distended and no masses GI Narrative: No organomegaly noted to suggest acute urinary retention/bladder distention Auscultation: normoactive bowel sounds Palpation: soft Narrative: Mccormick catheter in place. There is blood-tinged urine leaking around the catheter insertion at the urethral meatus. Otherwise no testicular swelling or masses. No overlying soft tissue changes to suggest Elaine's gangrene. Back/Spine no CVA tenderness Extremity normal to inspection Neuro oriented x3, CN's II-XII intact bilaterally and no sensory deficits noted Sensorium / Orientation: alert Psych mental status grossly normal Skin no rashes or lesions noted General Skin Exam: Negative for jaundice or pallor MDM MDM MDM Narrative Medical decision making narrative: Patient arrived to the ER hypertensive but has a past medical history of this. He reported roughly 8 hours since he last emptied his Mccormick catheter bag. I have low concern for obstructive nephropathy as he is continuing to drain his bladder except it is now leaking around the catheter instead of flowing through it. There is high concern for obstruction secondary to clots. Therefore the catheter was flushed by the nursing staff. After doing this there was expression of multiple blood clots and after they were removed there was normal flow of urine through the catheter. Patient no longer had leakage around the catheter at the urethral meatus opening and he reported feeling much better. Therefore at this time with resolution of the obstruc (more content not included)... Normal [facility] Final Surgical Pathology Rep maico 12-04-2024 Final Surgical Pathology Report . 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 RS-8 Marita Stanley, Pathologists' Sous Chef Kitchen Manager (ASCP) Performed by MARITA STANLEY MICROSCOPIC DESCRIPTION: The microscopic examination is performed, except in the case of Gross Only. Verified by Pathology Report verified by [facility] PARISH PERKINS MD Sign out Date: 12/04/2024 12:36 Performing Lab: [facility], [address] [place] [address] Pathology Dept Disclaimer If ancillary studies were utilized, the following Laboratory Developed Test (LDT) disclaimer will apply: Under CLIA requirements, [facility] Pathology Laboratory is qualified to perform high complexity testing. For all ancillary stains, positive and negative controls stain appropriately. Performance characteristics of immunohistochemical and chromogenic in-situ hybridization tests have been determined by [facility] Pathology Laboratory. These tests are used for clinical purposes, They should not be regarded as investigational or for research. . Normal [facility] .Auto Diffon 12-03-2024 Basophil, Absolute 0.1 10 3/mcL Normal 0.0-0.3 [facility] Comment on above: Performed By: #### A DIFF, ANEU, BMP, CBC, GFR #### [address] [address] Basophils/100 WBC (Bld) 0.7 % Normal 0.0-2.5 [facility] Comment on above: Performed By: #### A DIFF, ANEU, BMP, CBC, GFR #### [address] [address] Eosinophil, Absolute 0.6 10 3/mcL Normal 0.0-0.7 [facility] Comment on above: Performed By: #### A DIFF, ANEU, BMP, CBC, GFR #### [address] [address] Eosinophils/100 WBC (Bld) 5.8 % Normal 0.0-6.0 [facility] Comment on above: Performed By: #### A DIFF, ANEU, BMP, CBC, GFR #### [address] [address] Lymphocyte, Absolute 2.0 10 3/mcL Normal 0.9-4.3 [facility] Comment on above: Performed By: #### A DIFF, ANEU, BMP, CBC, GFR #### [address] [address] Lymphocytes/100 WBC (Bld) 20.8 % Normal 20.0-40.0 [facility] Comment on above: Performed By: #### A DIFF, ANEU, BMP, CBC, GFR #### [address] [address] Monocyte, Absolute 0.9 10 3/mcL Normal 0.1-1.4 [facility] Comment on above: Performed By: #### A DIFF, ANEU, BMP, CBC, GFR #### [address] [address] Monocytes/100 WBC (Bld) 9.6 % Normal 2.0-13.0 [facility] Comment on above: Performed By: #### A DIFF, ANEU, BMP, CBC, GFR #### [place] [address] Neutrophils/100 WBC (Bld) 63.1 % Normal 50.0-75.0 [facility] Comment on above: Performed By: #### A DIFF, ANEU, BMP, CBC, GFR #### [place] [address] .NEUABSon 12-03-2024 Neutrophil, Absolute 6.0 10 3/mcL Normal 2.3-8.1 [facility] Comment on above: Performed By: #### A DIFF, ANEU, BMP, CBC, GFR #### [place] [address] CBCon 12-03-2024 Erythrocyte distribution width (RBC) [Ratio] 13.7 % Normal 11.5-15.5 [facility] Comment on above: Performed By: #### A DIFF, ANEU, BMP, CBC, GFR #### [place] [address] Hematocrit (Bld) [Volume fraction] 28.0 % Low 40.0-52.0 [facility] Comment on above: Performed By: #### A DIFF, ANEU, BMP, CBC, GFR #### [place] [address] Hgb 9.7 G/dL Low 13.0-17.5 [facility] Comment on above: Performed By: #### A DIFF, ANEU, BMP, CBC, GFR #### [place] [address] MCH (RBC) [Entitic mass] 30.8 pg Normal 27.0-33.0 [facility] Comment on above: Performed By: #### A DIFF, ANEU, BMP, CBC, GFR #### [place] [address] MCHC 34.6 G/dL Normal 32.0-36.0 [facility] Comment on above: Performed By: #### A DIFF, ANEU, BMP, CBC, GFR #### [place] [address] MCV (RBC) [Entitic vol] 89.0 fL Normal 81.0-100.0 [facility] Comment on above: Performed By: #### A DIFF, ANEU, BMP, CBC, GFR #### [address] [address] Platelet 279 10 3/mcL Normal 150-450 [facility] Comment on above: Performed By: #### A DIFF, ANEU, BMP, CBC, GFR #### [address] [address] Platelet mean volume (Bld) [Entitic vol] 6.7 fL Normal 6.4-10.5 [facility] Comment on above: Performed By: #### A DIFF, ANEU, BMP, CBC, GFR #### [place] [address] RBC 3.15 10 6/mcL Low 4.50-6.00 [facility] Comment on above: Performed By: #### A DIFF, ANEU, BMP, CBC, GFR #### [address] [address] WBC 9.5 10 3/mcL Normal 4.5-10.8 [facility] Comment on above: Performed By: #### A DIFF, ANEU, BMP, CBC, GFR #### [address] [address] .Auto Diffon 12-02-2024 Basophil, Absolute 0.0 10 3/mcL Normal 0.0-0.3 [facility] Comment on above: Performed By: #### A DIFF, ANEU, CBC, BMP, GFR #### [address] [address] Basophils/100 WBC (Bld) 0.5 % Normal 0.0-2.5 [facility] Comment on above: Performed By: #### A DIFF, ANEU, CBC, BMP, GFR #### [address] [address] Eosinophil, Absolute 0.3 10 3/mcL Normal 0.0-0.7 [facility] Comment on above: Performed By: #### A DIFF, ANEU, CBC, BMP, GFR #### [address] [address] Eosinophils/100 WBC (Bld) 3.6 % Normal 0.0-6.0 [facility] Comment on above: Performed By: #### A DIFF, ANEU, CBC, BMP, GFR #### [address] [address] Lymphocyte, Absolute 1.7 10 3/mcL Normal 0.9-4.3 [facility] Comment on above: Performed By: #### A DIFF, ANEU, CBC, BMP, GFR #### [address] [address] Lymphocytes/100 WBC (Bld) 18.3 % Low 20.0-40.0 [facility] Comment on above: Performed By: #### A DIFF, ANEU, CBC, BMP, GFR #### [address] [address] Monocyte, Absolute 1.0 10 3/mcL Normal 0.1-1.4 [facility] Comment on above: Performed By: #### A DIFF, ANEU, CBC, BMP, GFR #### [address] [address] Monocytes/100 WBC (Bld) 10.2 % Normal 2.0-13.0 [facility] Comment on above: Performed By: #### A DIFF, ANEU, CBC, BMP, GFR #### [address] [address] Neutrophils/100 WBC (Bld) 67.4 % Normal 50.0-75.0 [facility] Comment on above: Performed By: #### A DIFF, ANEU, CBC, BMP, GFR #### [address] [address] .GFRon 12-02-2024 Estimated Glomerular Filtration Rate 65 ml/min/1.73sqm Normal [facility] Comment on above: Result Comment: Stages of Chronic Kidney Disease (CKD) Stage Description eGFR(ml/min/1.73 sq.m.) CKD 1 Normal kidney function or >=90 normal kindney function with possible kidney damage (ex. Proteinuria) CKD 2 Kidney damage with mild loss 60-89 of kidney function CKD 3a Mild to moderate loss of kidney 45-59 function CKD 3b Moderate to severe loss of 30-44 of kindey function CKD 4 Severe loss of kidney function 15-29 CKD 5 Kidney failure <15 Note: (go live 2024) the eGFR calculation was updated to the 2020 CKD-EPI creatinine equation without a race factor to calculate the eGFR results. Performed By: #### A DIFF, ANEU, CBC, BMP, GFR #### [address] [address] .NEUABSon 12-02-2024 Neutrophil, Absolute 6.4 10 3/mcL Normal 2.3-8.1 [facility] Comment on above: Performed By: #### A DIFF, ANEU, CBC, BMP, GFR #### [address] [address] BMPon 12-02-2024 BUN/Creatinine Ratio 28 ratio High 7-27 [facility] Comment on above: Performed By: #### A DIFF, ANEU, CBC, BMP, GFR #### [address] [address] Calcium [Mass/Vol] 8.0 mg/dL Low 8.4-10.2 [facility] Comment on above: Performed By: #### A DIFF, ANEU, CBC, BMP, GFR #### [address] [address] Chloride [Moles/Vol] 110 mmol/L High 98-107 [facility] Comment on above: Performed By: #### A DIFF, ANEU, CBC, BMP, GFR #### [address] [address] CO2 [Moles/Vol] 27 mmol/L Normal 23-31 [facility] Comment on above: Performed By: #### A DIFF, ANEU, CBC, BMP, GFR #### [address] [address] Creatinine [Mass/Vol] 1.20 mg/dL Normal 0.70-1.30 [facility] Comment on above: Result Comment: Test ing performed on Siemens Dimension EXL analyzer using a modified kinetic Reji technique. Performed By: #### A DIFF, ANEU, CBC, BMP, GFR #### [address] [address] Electrolyte Balance 3.0 mEq/L Low 4.0-15.0 [facility] Comment on above: Performed By: #### A DIFF, ANEU, CBC, BMP, GFR #### [address] [address] Glucose [Mass/Vol] 116 mg/dL High 83-110 [facility] Comment on above: Performed By: #### A DIFF, ANEU, CBC, BMP, GFR #### [address] [address] Potassium [Moles/Vol] 3.8 mmol/L Normal 3.5-5.1 [facility] Comment on above: Performed By: #### A DIFF, ANEU, CBC, BMP, GFR #### [address] [address] Sodium [Moles/Vol] 140 mmol/L Normal 136-145 [facility] Comment on above: Performed By: #### A DIFF, ANEU, CBC, BMP, GFR #### [address] [address] Urea nitrogen [Mass/Vol] 34 mg/dL High 7-18 [facility] Comment on above: Performed By: #### A DIFF, ANEU, CBC, BMP, GFR #### [address] [address] CBCon 12-02-2024 Erythrocyte distribution width (RBC) [Ratio] 13.7 % Normal 11.5-15.5 [facility] Comment on above: Performed By: #### A DIFF, ANEU, CBC, BMP, GFR #### [address] [address] Hematocrit (Bld) [Volume fraction] 26.1 % Low 40.0-52.0 [facility] Comment on above: Performed By: #### A DIFF, ANEU, CBC, BMP, GFR #### [address] [address] Hgb 8.9 G/dL Low 13.0-17.5 [facility] Comment on above: Performed By: #### A DIFF, ANEU, CBC, BMP, GFR #### [place] [address] MCH (RBC) [Entitic mass] 30.5 pg Normal 27.0-33.0 [facility] Comment on above: Performed By: #### A DIFF, ANEU, CBC, BMP, GFR #### [place] [address] MCHC 34.1 G/dL Normal 32.0-36.0 [facility] Comment on above: Performed By: #### A DIFF, ANEU, CBC, BMP, GFR #### [address] [address] MCV (RBC) [Entitic vol] 89.6 fL Normal 81.0-100.0 [facility] Comment on above: Performed By: #### A DIFF, ANEU, CBC, BMP, GFR #### [address] [address] Platelet 241 10 3/mcL Normal 150-450 [facility] Comment on above: Performed By: #### A DIFF, ANEU, CBC, BMP, GFR #### [address] [address] Platelet mean volume (Bld) [Entitic vol] 6.8 fL Normal 6.4-10.5 [facility] Comment on above: Performed By: #### A DIFF, ANEU, CBC, BMP, GFR #### [address] [address] RBC 2.91 10 6/mcL Low 4.50-6.00 [facility] Comment on above: Performed By: #### A DIFF, ANEU, CBC, BMP, GFR #### [address] [address] WBC 9.5 10 3/mcL Normal 4.5-10.8 [facility] Comment on above: Performed By: #### A DIFF, ANEU, CBC, BMP, GFR #### [address] [address] .Auto Diffon 12-01-2024 Basophil, Absolute 0.0 10 3/mcL Normal 0.0-0.3 [facility] Comment on above: Performed By: #### A DIFF, ANEU, BMP, CBC, GFR #### [address] [address] Basophils/100 WBC (Bld) 0.1 % Normal 0.0-2.5 [facility] Comment on above: Performed By: #### A DIFF, ANEU, BMP, CBC, GFR #### [address] [address] Eosinophil, Absolute 0.0 10 3/mcL Normal 0.0-0.7 [facility] Comment on above: Performed By: #### A DIFF, ANEU, BMP, CBC, GFR #### [address] [address] Eosinophils/100 WBC (Bld) 0.0 % Normal 0.0-6.0 [facility] Comment on above: Performed By: #### A DIFF, ANEU, BMP, CBC, GFR #### [address] [address] Lymphocyte, Absolute 0.8 10 3/mcL Low 0.9-4.3 [facility] Comment on above: Performed By: #### A DIFF, ANEU, BMP, CBC, GFR #### [address] [address] Lymphocytes/100 WBC (Bld) 6.2 % Low 20.0-40.0 [facility] Comment on above: Performed By: #### A DIFF, ANEU, BMP, CBC, GFR #### [address] [address] Monocyte, Absolute 1.0 10 3/mcL Normal 0.1-1.4 [facility] Comment on above: Performed By: #### A DIFF, ANEU, BMP, CBC, GFR #### [address] [address] Monocytes/100 WBC (Bld) 7.7 % Normal 2.0-13.0 [facility] Comment on above: Performed By: #### A DIFF, ANEU, BMP, CBC, GFR #### [address] [address] Neutrophils/100 WBC (Bld) 86.0 % High 50.0-75.0 [facility] Comment on above: Performed By: #### A DIFF, ANEU, BMP, CBC, GFR #### [address] [address] .GFRon 12-01-2024 Estimated Glomerular Filtration Rate 77 ml/min/1.73sqm Normal [facility] Comment on above: Result Comment: Stages of Chronic Kidney Disease (CKD) Stage Description eGFR(ml/min/1.73 sq.m.) CKD 1 Normal kidney function or >=90 normal kindney function with possible kidney damage (ex. Proteinuria) CKD 2 Kidney damage with mild loss 60-89 of kidney function CKD 3a Mild to moderate loss of kidney 45-59 function CKD 3b Moderate to severe loss of 30-44 of kindey function CKD 4 Severe loss of kidney function 15-29 CKD 5 Kidney failure <15 Note: (go live 2024) the eGFR calculation was updated to the 2020 CKD-EPI creatinine equation without a race factor to calculate the eGFR results. Performed By: #### A DIFF, ANEU, BMP, CBC, GFR #### [address] [address] .NEUABSon 12-01-2024 Neutrophil, Absolute 11.5 10 3/mcL High 2.3-8.1 [facility] Comment on above: Performed By: #### A DIFF, ANEU, BMP, CBC, GFR #### [address] [address] BMPon 12-01-2024 BUN/Creatinine Ratio 21 ratio Normal 7-27 [facility] Comment on above: Performed By: #### A DIFF, ANEU, BMP, CBC, GFR #### [address] [address] Calcium [Mass/Vol] 8.1 mg/dL Low 8.4-10.2 [facility] Comment on above: Performed By: #### A DIFF, ANEU, BMP, CBC, GFR #### [address] [address] Chloride [Moles/Vol] 104 mmol/L Normal 98-107 [facility] Comment on above: Performed By: #### A DIFF, ANEU, BMP, CBC, GFR #### [place] [address] CO2 [Moles/Vol] 23 mmol/L Normal 23-31 [facility] Comment on above: Performed By: #### A DIFF, ANEU, BMP, CBC, GFR #### [address] [address] Creatinine [Mass/Vol] 1.04 mg/dL Normal 0.70-1.30 [facility] Comment on above: Result Comment: Test ing performed on Siemens Dimension EXL analyzer using a modified kinetic Reji technique. Performed By: #### A DIFF, ANEU, BMP, CBC, GFR #### [address] [address] Electrolyte Balance 9.0 mEq/L Normal 4.0-15.0 [facility] Comment on above: Performed By: #### A DIFF, ANEU, BMP, CBC, GFR #### [address] [address] Glucose [Mass/Vol] 120 mg/dL High 83-110 [facility] Comment on above: Performed By: #### A DIFF, ANEU, BMP, CBC, GFR #### [address] [address] Potassium [Moles/Vol] 4.4 mmol/L Normal 3.5-5.1 [facility] Comment on above: Performed By: #### A DIFF, ANEU, BMP, CBC, GFR #### [place] [address] Sodium [Moles/Vol] 136 mmol/L Normal 136-145 [facility] Comment on above: Performed By: #### A DIFF, ANEU, BMP, CBC, GFR #### [place] [address] Urea nitrogen [Mass/Vol] 22 mg/dL High 7-18 [facility] Comment on above: Performed By: #### A DIFF, ANEU, BMP, CBC, GFR #### [place] [address] CBCon 12-01-2024 Erythrocyte distribution width (RBC) [Ratio] 13.1 % Normal 11.5-15.5 [facility] Comment on above: Performed By: #### A DIFF, ANEU, BMP, CBC, GFR #### [place] [address] Hematocrit (Bld) [Volume fraction] 32.9 % Low 40.0-52.0 [facility] Comment on above: Performed By: #### A DIFF, ANEU, BMP, CBC, GFR #### [place] [address] Hgb 11.2 G/dL Low 13.0-17.5 [facility] Comment on above: Performed By: #### A DIFF, ANEU, BMP, CBC, GFR #### [place] [address] MCH (RBC) [Entitic mass] 30.5 pg Normal 27.0-33.0 [facility] Comment on above: Performed By: #### A DIFF, ANEU, BMP, CBC, GFR #### [place] [address] MCHC 34.2 G/dL Normal 32.0-36.0 [facility] Comment on above: Performed By: #### A DIFF, ANEU, BMP, CBC, GFR #### [address] [address] MCV (RBC) [Entitic vol] 89.2 fL Normal 81.0-100.0 [facility] Comment on above: Performed By: #### A DIFF, ANEU, BMP, CBC, GFR #### [address] [address] Platelet 271 10 3/mcL Normal 150-450 [facility] Comment on above: Performed By: #### A DIFF, ANEU, BMP, CBC, GFR #### [address] [address] Platelet mean volume (Bld) [Entitic vol] 6.5 fL Normal 6.4-10.5 [facility] Comment on above: Performed By: #### A DIFF, ANEU, BMP, CBC, GFR #### [address] [address] RBC 3.69 10 6/mcL Low 4.50-6.00 [facility] Comment on above: Performed By: #### A DIFF, ANEU, BMP, CBC, GFR #### [address] [address] WBC 13.4 10 3/mcL High 4.5-10.8 [facility] Comment on above: Performed By: #### A DIFF, ANEU, BMP, CBC, GFR #### [address] [address] .Auto Diffon 11-27-2024 Basophil, Absolute 0.1 10 3/mcL Normal 0.0-0.3 [facility] Comment on above: Performed By: #### A DIFF, ANEU, BMP, CBC, GFR #### [address] [address] Basophils/100 WBC (Bld) 1.0 % Normal 0.0-2.5 [facility] Comment on above: Performed By: #### A DIFF, ANEU, BMP, CBC, GFR #### [address] [address] Eosinophil, Absolute 0.4 10 3/mcL Normal 0.0-0.7 [facility] Comment on above: Performed By: #### A DIFF, ANEU, BMP, CBC, GFR #### [address] [address] Eosinophils/100 WBC (Bld) 4.4 % Normal 0.0-6.0 [facility] Comment on above: Performed By: #### A DIFF, ANEU, BMP, CBC, GFR #### [address] [address] Lymphocyte, Absolute 1.0 10 3/mcL Normal 0.9-4.3 [facility] Comment on above: Performed By: #### A DIFF, ANEU, BMP, CBC, GFR #### [address] [address] Lymphocytes/100 WBC (Bld) 10.6 % Low 20.0-40.0 [facility] Comment on above: Performed By: #### A DIFF, ANEU, BMP, CBC, GFR #### [address] [address] Monocyte, Absolute 0.8 10 3/mcL Normal 0.1-1.4 [facility] Comment on above: Performed By: #### A DIFF, ANEU, BMP, CBC, GFR #### [address] [address] Monocytes/100 WBC (Bld) 7.9 % Normal 2.0-13.0 [facility] Comment on above: Performed By: #### A DIFF, ANEU, BMP, CBC, GFR #### [address] [address] Neutrophils/100 WBC (Bld) 76.1 % High 50.0-75.0 [facility] Comment on above: Performed By: #### A DIFF, ANEU, BMP, CBC, GFR #### [address] [address] .GFRon 11-27-2024 Estimated Glomerular Filtration Rate 92 ml/min/1.73sqm Normal [facility] Comment on above: Result Comment: Stages of Chronic Kidney Disease (CKD) Stage Description eGFR(ml/min/1.73 sq.m.) CKD 1 Normal kidney function or >=90 normal kindney function with possible kidney damage (ex. Proteinuria) CKD 2 Kidney damage with mild loss 60-89 of kidney function CKD 3a Mild to moderate loss of kidney 45-59 function CKD 3b Moderate to severe loss of 30-44 of kindey function CKD 4 Severe loss of kidney function 15-29 CKD 5 Kidney failure <15 Note: (go live 2024) the eGFR calculation was updated to the 2020 CKD-EPI creatinine equation without a race factor to calculate the eGFR results. Performed By: #### A DIFF, ANEU, BMP, CBC, GFR #### [address] [address] .NEUABSon 11-27-2024 Neutrophil, Absolute 7.4 10 3/mcL Normal 2.3-8.1 [facility] Comment on above: Performed By: #### A DIFF, ANEU, BMP, CBC, GFR #### [address] [address] BMPon 11-27-2024 BUN/Creatinine Ratio 25 ratio Normal 7-27 [facility] Comment on above: Performed By: #### A DIFF, ANEU, BMP, CBC, GFR #### [address] [address] Calcium [Mass/Vol] 9.5 mg/dL Normal 8.4-10.2 [facility] Comment on above: Performed By: #### A DIFF, ANEU, BMP, CBC, GFR #### [address] [address] Chloride [Moles/Vol] 103 mmol/L Normal 98-107 [facility] Comment on above: Performed By: #### A DIFF, ANEU, BMP, CBC, GFR #### [address] [address] CO2 [Moles/Vol] 24 mmol/L Normal 23-31 [facility] Comment on above: Performed By: #### A DIFF, ANEU, BMP, CBC, GFR #### [address] [address] Creatinine [Mass/Vol] 0.88 mg/dL Normal 0.70-1.30 [facility] Comment on above: Result Comment: Test ing performed on Siemens Dimension EXL analyzer using a modified kinetic Reji technique. Performed By: #### A DIFF, ANEU, BMP, CBC, GFR #### [address] [address] Electrolyte Balance 11.0 mEq/L Normal 4.0-15.0 [facility] Comment on above: Performed By: #### A DIFF, ANEU, BMP, CBC, GFR #### [place] [address] Glucose [Mass/Vol] 93 mg/dL Normal 83-110 [facility] Comment on above: Performed By: #### A DIFF, ANEU, BMP, CBC, GFR #### [place] [address] Potassium [Moles/Vol] 3.9 mmol/L Normal 3.5-5.1 [facility] Comment on above: Performed By: #### A DIFF, ANEU, BMP, CBC, GFR #### [place] [address] Sodium [Moles/Vol] 138 mmol/L Normal 136-145 [facility] Comment on above: Performed By: #### A DIFF, ANEU, BMP, CBC, GFR #### [place] [address] Urea nitrogen [Mass/Vol] 22 mg/dL High 7-18 [facility] Comment on above: Performed By: #### A DIFF, ANEU, BMP, CBC, GFR #### [address] [address] CBCon 11-27-2024 Erythrocyte distribution width (RBC) [Ratio] 13.6 % Normal 11.5-15.5 [facility] Comment on above: Order Comment: Pre-A dmission Testing Performed By: #### A DIFF, ANEU, BMP, CBC, GFR #### [address] [address] Hematocrit (Bld) [Volume fraction] 43.4 % Normal 40.0-52.0 [facility] Comment on above: Order Comment: Pre-A dmission Testing Performed By: #### A DIFF, ANEU, BMP, CBC, GFR #### [address] [address] Hgb 14.7 G/dL Normal 13.0-17.5 [facility] Comment on above: Order Comment: Pre-A dmission Testing Performed By: #### A DIFF, ANEU, BMP, CBC, GFR #### [address] [address] MCH (RBC) [Entitic mass] 30.1 pg Normal 27.0-33.0 [facility] Comment on above: Order Comment: Pre-A dmission Testing Performed By: #### A DIFF, ANEU, BMP, CBC, GFR #### [address] [address] MCHC 33.9 G/dL Normal 32.0-36.0 [facility] Comment on above: Order Comment: Pre-A dmission Testing Performed By: #### A DIFF, ANEU, BMP, CBC, GFR #### [address] [address] MCV (RBC) [Entitic vol] 88.7 fL Normal 81.0-100.0 [facility] Comment on above: Order Comment: Pre-A dmission Testing Performed By: #### A DIFF, ANEU, BMP, CBC, GFR #### [address] [address] Platelet 341 10 3/mcL Normal 150-450 [facility] Comment on above: Order Comment: Pre-A dmission Testing Performed By: #### A DIFF, ANEU, BMP, CBC, GFR #### [address] [address] Platelet mean volume (Bld) [Entitic vol] 7.1 fL Normal 6.4-10.5 [facility] Comment on above: Order Comment: Pre-A dmission Testing Performed By: #### A DIFF, ANEU, BMP, CBC, GFR #### [facility] [address] [place], [place] [address] RBC 4.89 10 6/mcL Normal 4.50-6.00 [facility] Comment on above: Order Comment: Pre-A dmission Testing Performed By: #### A DIFF, ANEU, BMP, CBC, GFR #### [facility] [address] [place], [place] [address] WBC 9.7 10 3/mcL Normal 4.5-10.8 [facility] Comment on above: Order Comment: Pre-A dmission Testing Performed By: #### A DIFF, ANEU, BMP, CBC, GFR #### [place] [address] [place], [place] [address] Bilirubin Test strip Ql (U)O rdered By: Evens Portillo on 11-13-2024 Bilirubin Ql (U) Negative Negative [facility] Emergency Department Summary on 11-13-2024 Emergency Department Summary [facility] Medical Records Department [address] [place] [id number] Emergency Department Summary 11/13/24 MR#: [id number] Acct: [id number] Name: ANGE ZUNIGA Rep #: [id number] : 1955 69 From: Evens Portillo MD PCP: Dr. Carmen Araiza, DO Status:DEP ER Location: ED HPI History of Present Illness Chief Complaint: Complaint Informant: patient and spouse/S.O. Pain Onset: Today Context: Gradual Onset Timing: Continuous Current Severity: Moderate Maximum Severity: Moderate Narrative Narrative: 69-year-old male history of BPH. A week ago presented emergency department. A Mccormick catheter placed for urinary retention. It was removed by his urologist, Dr. Nicholas Thapa, yesterday which was November 12. Patient's unable to pee and is having suprapubic discomfort this morning. He said there was a small amount of blood. No prior prostate surgery or bladder surgery. He is currently on Flomax. Prior similar symptoms: Yes Recent Illness/Hospitalizatio n: No PFSH PFS Medical History Urinary retention Hypertension Home Medications ???Medication ???Instructions ???Recorded ???Last Taken ???Type lisinopril 40 mg tablet 40 mg PO DAILY 11/02/24 11/01/24 H istory metoprolol succinate 100 mg 100 mg PO QHS 11/02/24 11/01/24 Hi story tablet,extended release 24 hr ciprofloxacin HCl 500 mg tablet 500 mg PO BID 10 days #20 tabs 09/08 Unknown Rx (Cipro) tamsulosin 0.4 mg capsule 0.4 mg PO QHS 11/13/24 Unknown His tory Allergy/AdvReac Type Severity Reaction Status Date / Time No Known Allergies Allergy Verified 11/13/24 05:19 Social History Smoking Status: Never smoker ROS ROS ED ROS Narrative Denies recent illness. Constitutional Constitutional ED: Denies chills or fever(s) Eyes Eyes: Denies blurry vision ENT ENT ED: Denies ear pain Cardiovascular Cardiovascular: Denies chest pain Respiratory/Chest Respiratory/Chest: Denies cough Gastrointestinal Gastrointestinal: Denies abdominal pain, constipation, diarrhea, melena, nausea or vomiting Genitourinary Genitourinary ED: Reports hematuria and other Details: Unable to urinate. Musculoskeletal Musculoskeletal: Denies arthralgias or back pain Integumentary Denies abscess Neurologic Neurologic: Denies headache(s) Psychiatric Psychiatric: Denies anxiety Endocrine Endocrinology: Denies polydipsia Hematologic/Lymphatic Hematologic/Lymphatic: Denies easy bleeding Allergic/Immunologic Allergic/Immunologic ED: Denies mouth swelling, tongue swelling or urticaria EXAM Physical Exam Narrative Exam Narrative: 69-year-old male lying in bed. Vital signs are stable afebrile. at bedside. H EENT exam pupils round reactive light. Extra motions are intact. Neck nontender no lymphadenopathy. Lungs clear to auscultation bilaterally. Heart regular rhythm no murmur. Chest wall nontender. Abdomen suprapubic tenderness bladder distention. Bladder scan shows distended bladder 747 mL. External exam unremarkable. No gross blood. Moving all 4 extremities. Nontender no edema. Normal strength. Patient is awake alert. No focal motor deficits. Const Vital Signs: 11/13/24 05:18 Temperature 97.5 F L Temperature Source Axillary Pulse Rate 103 H Respiratory Rate 16 Blood Pressure 199/111 H Blood Pressure Mean 140 Pulse Ox 95 Positive well nourished and well developed; Negative for cachectic, contractures or unkempt General Appearance ED: well developed; Negative for unkempt, cachectic, contractures or pallor Nutritional Appearance: Negative for cachectic HEENT Reports moist mucous membranes normocephalic and atraumatic Eyes PERRL and EOMs intact bilaterally Neck no lymphadenopathy, supple and no JVD Resp normal respiratory effort and clear to auscultation bilaterally Effort and Inspection: Negative for retractions Auscultation: Negative for rales, rhonchi, wheezes or diminished lung sounds Cardio regular rate, regular rhythm, S1 normal heart sound, S2 normal heart sound and no murmurs Rate: Negative for bradycardia or tachycardic Rhythm: Negative for abnormal rhythm GI no masses; Negative for non-tender or non-distended GI Narrative: Distended bladder. Suprapubic tenderness. Palpation: soft and tender; Negative for guarding or hepatomegaly no CVA tenderness Back/Spine no CVA tenderness General Back: Negative for CVA tenderness Cervical Spine: Negative for cervical spine tenderness Thoracic Spine / Upper Back: Negative for thoracic spinal tenderness Lumbar Spine / Lower Back: Negative for lumbar spinal tenderness Extremity normal to inspection General Extremety ED: Negative for edema or tenderness (more content not included)... Normal [facility] Epithelial cells.squamous LM Ql (Urine sed)Ordered By: Evens Portillo on 11-13-2024 Epithelial cells.squamous LM.HPF (Urine sed) [#/Area] 0 /[HPF] 0-5 [facility] Glucose Ql (U)Ordered By: Romario Portillo on 11-13-2024 Urine Glucose (UA) Normal mg/dl Normal [facility] Ketones Test strip Ql (U)Ord ered By: Evens Portillo on 11-13-2024 Ketones Ql (U) Negative Negative [facility] Microscopic analysis of urin e for red blood cells (RBC)Ordered By: Evens Portillo on 11-13-2024 Urine RBC 50-100 SEEN /hpf 0-5 [facility] Mucus LM Ql (Urine sed)Order ed By: Evens Portillo on 11-13-2024 Mucus Ql (Urine sed) 0 SEEN /hpf [facility] Nitrite Test strip Ql (U)Ord ered By: Evens Portillo on 11-13-2024 Nitrite Ql (U) Negative Negative [facility] Protein Test strip Ql (U)Ord ered By: Evens Portillo on 11-13-2024 Protein Ql (U) 30 mg/dl High Negative [facility] Urinalysis, Completeon 11-13 BACTERIA 2+ /hpf Normal None Seen [facility] Comment on above: Order Comment: NAYA TER SPECIMEN Performed By: #### L 400.0001 #### [facility] [address] [place], [address] EPI,SQUAMOUS 0-5 SEEN Normal 0-5 [facility] Comment on above: Order Comment: NAYA TER SPECIMEN Performed By: #### L 400.0001 #### [facility] [address] [place], [address] RBC 50-100 SEEN Normal 0-5 [facility] Comment on above: Order Comment: NAYA TER SPECIMEN Performed By: #### L 400.0001 #### [facility] [address] [place], [address] WBC >100 SEEN Normal 0-5 [facility] Comment on above: Order Comment: NAYA TER SPECIMEN Performed By: #### L 400.0001 #### [facility] [address] [place], [address] Mucus Ql (Urine sed) 0 SEEN Normal [facility] Comment on above: Order Comment: NAYA TER SPECIMEN Performed By: #### L 400.0001 #### [facility] [address] [place], [address] Urine blood detectionOrdered By: Evens Portillo on 11-13-2024 Urine Occult Blood 250 /ul High Negative [facility] Urine clarityOrdered By: Reynaldo Portillo on 11-13-2024 Clarity (U) Cloudy Clear [facility] Urine color determinationOrd ered By: Evens Portilol on 11-13-2024 Color (U) Yellow Yellow [facility] Urine leukocyte esterase det ection by dipstickOrdered By: Evens Portillo on 11-13-2024 Leukocyte esterase Test strip Ql (U) 500 /ul High Negative [facility] Urine pHOrdered By: Evens lu on 11-13-2024 pH (U) 6.0 [pH] 5.0 - 8.0 [facility] Urine sediment bacteria coun t by microscopy (number/high power field)Ordered By: Evens Portillo on 11-13-2024 Bacteria LM.HPF (Urine sed) [#/Area] 2 /[HPF] None Seen [facility] Urine specific gravity measu rementOrdered By: Evens Portillo on 11-13-2024 Specific gravity (U) [Rel density] 1.025 1.002-1.030 [facility] Urobilinogen Ql (U)Ordered B y: Evens Portillo on 11-13-2024 Urine Urobilinogen Normal mg/dl Normal [facility] White blood cell countOrdere d By: Evens Portillo on 11-13-2024 Urine WBC >100 SEEN /hpf 0-5 [facility] Anion gap in Serum or Plasma Ordered By: Duran Fabian on 11-02-2024 Anion gap [Moles/Vol] 14 mmol/L 5-15 [facility] BUN/creatinine ratioOrdered By: Duran Fabian on 11-02-2024 Urea nitrogen/Creatinine [Mass ratio] 21.2 mg/mg High 10- [facility] Basic Metabolic Profile (BMP )on 11-02-2024 BUN/CRE 21.2 RATIO High - [facility] Comment on above: Performed By: #### L 500.2500 #### [facility] [address] [place], [address] Calcium [Mass/Vol] 9.1 mg/dL Normal 7.6-11.0 [facility] Comment on above: Performed By: #### L 500.2500 #### [facility] [address] [place], [address] Chloride [Moles/Vol] 103 mmol/L Normal 98-108 [facility] Comment on above: Performed By: #### L 500.2500 #### [facility] [address] [place], [address] CO2 [Moles/Vol] 20.3 mmol/L Low 21.0-32.0 [facility] Comment on above: Performed By: #### L 500.2500 #### [facility] [address] [place], [address] Creatinine [Mass/Vol] 0.84 mg/dL Normal 0.70-1.20 [facility] Comment on above: Performed By: #### L 500.2500 #### [facility] [address] [place], [address] ECRCL 92.20 ml/min Normal 50-250 [facility] Comment on above: Performed By: #### L 500.2500 #### [facility] [address] [place], [address] GAP 14 Normal 5-15 [facility] Comment on above: Performed By: #### L 500.2500 #### [facility] [address] [place], [address] GFR/1.73 sq M.predicted among non-blacks MDRD (S/P/Bld) [Vol rate/Area] 93 mL/min/{1.73_m2} Normal >60 [facility] Comment on above: Result Comment: mL/m in/1.73m2 CKD-EPI Creatinine Equation (2020) Performed By: #### L 500.2500 #### [facility] [address] [place], [address] Glucose [Mass/Vol] 169 mg/dL High 70-99 [facility] Comment on above: Performed By: #### L 500.2500 #### [facility] [address] [place], [address] Potassium [Moles/Vol] 4.1 mmol/L Normal 3.3-5.1 [facility] Comment on above: Performed By: #### L 500.2500 #### [facility] [address] [place], [place], [address] Sodium [Moles/Vol] 136 mmol/L Normal 133-145 [facility] Comment on above: Performed By: #### L 500.2500 #### [facility] [address] [place], [place], [address] Urea nitrogen [Mass/Vol] 18 mg/dL Normal 4-19 [facility] Comment on above: Performed By: #### L 500.2500 #### [facility] [address] [place], [place], [address] Bilirubin Test strip Ql (U)O rdered By: Duran Fabian on 11-02-2024 Bilirubin Ql (U) Negative Negative [facility] Carbon dioxide, total [Moles /volume] in Central venous bloodOrdered By: Duran Fabian on 11-02-2024 CO2 [Moles/Vol] 20.3 mmol/L Low 21.0-32.0 [facility] Chloride assayOrdered By: Zenaida Fabian on 11-02-2024 Chloride [Moles/Vol] 103 mmol/L 98-108 [facility] Emergency Department Summary on 11-02-2024 Emergency Department Summary [facility] Medical Records Department [address] [place] [address] Emergency Department Summary 11/02/24 MR#: [id number] Acct: [id number] Name: ANGE ZUNIGA Rep #: [id number] : 1955 69 From: Duran Fabian DO PCP: Dr. Carmen Araiza, DO Status:DEP ER Location: ED HPI History of Present Illness Chief Complaint: Complaint Detail of Chief Complaint: Urinary retention Informant: patient Narrative Narrative: Patient presents to the emergency department complaint of inability urinate since around 11 PM last night. Patient has not had this issue before. Denies recent illness. Describes lower abdominal discomfort. He denies fever or dysuria. [facility] Medical History (Updated 11/02/24 @ 09:[address] Duran Fabian, DO) Hypertension Home Medications ???Medication ???Instructions ???Recorded ???Last Taken ???Type azelastine 0.05 % eye drops 1 drp ophthalmic (eye) BID 5 Unknown History lisinopril 40 mg tablet 40 mg PO DAILY 11/02/24 11/01/24 H istory metoprolol succinate 100 mg 100 mg PO DAILY 11/02/24 11/01/24 History tablet,extended release 24 hr Allergy/AdvReac Type Severity Reaction Status Date / Time No Known Allergies Allergy Verified 11/02/24 09:02 Social History Smoking Status: Never smoker ROS ROS ED Review of Systems ROS Unobtainable: other Constitutional Constitutional ED: Reports lethargy; Denies chills, fever(s), sweats or weight loss Eyes Eyes: Denies blurry vision, change in vision or diplopia ENT ENT ED: Denies rhinorrhea or sore throat Cardiovascular Cardiovascular: Denies chest pain, orthopnea or racing heartbeat Respiratory/Chest Respiratory/Chest: Denies cough, dyspnea, dyspnea on exertion, orthopnea or sputum Gastrointestinal Gastrointestinal: Reports abdominal pain; Denies diarrhea, nausea or vomiting Genitourinary Genitourinary ED: Reports other Details: Urinary retention ; Denies dysuria, hematuria or urinary frequency Musculoskeletal Musculoskeletal: Denies arthralgias, back pain, myalgias or neck pain Integumentary Denies abscess, Abrasions or rash Neurologic Neurologic: Denies headache(s) or weakness Psychiatric Psychiatric: Denies anxiety, depression or suicidal thoughts Endocrine Endocrinology: Denies polydipsia, polyphagia or polyuria Hematologic/Lymphatic Hematologic/Lymphatic: Denies easy bleeding, easy bruising or lymphadenopathy Allergic/Immunologic Allergic/Immunologic ED: Denies mouth swelling, tongue swelling or urticaria EXAM Physical Exam Const Vital Signs: 11/02/24 07:42 11/02/24 09:00 11/02/24 09:01 Temperature 97.6 F L 97.9 F Temperature Source Temporal Oral Pulse Rate 93 83 84 Respiratory Rate 18 16 16 Blood Pressure 174/112 H 156/84 H 156/84 H Blood Pressure Mean 132 108 108 Pulse Ox 100 95 96 Oxygen Delivery Method Room Air Room Air Room Air Positive well nourished and well developed General Appearance ED: well developed and NAD HEENT Reports TM's clear and moist mucous membranes normocephalic and atraumatic; Negative for trauma or tenderness Tympanic Membrane ED: Yes TM's clear Eyes PERRL and EOMs intact bilaterally General Eye ED: Negative for pale conjunctiva or scleral icterus Neck no lymphadenopathy, supple and no JVD General: Negative for tenderness Chest Wall inspection of chest normal and palpation of chest normal Chest: Negative for tenderness Resp normal respiratory effort and clear to auscultation bilaterally Effort and Inspection: Negative for respiratory distress or pain with movement Auscultation: Negative for rhonchi, wheezes or diminished lung sounds Cardio regular rate, regular rhythm, S1 normal heart sound, S2 normal heart sound and no murmurs Peripheral Pulses: pulses 2+ throughout GI normal to inspection, nondistended, normoactive bowel sounds, soft to palpation, non-distended and no masses GI Narrative: Mild fullness in the suprapubic region with diffuse tenderness on exam. There is no rebound, rigidity, or peritoneal signs Back/Spine no CVA tenderness and no thoracic nor lumbar tenderness Extremity normal to inspection General Extremety ED: Negative for edema General Extremity: Negative for edema Neuro oriented x3, CN's II-XII intact bilaterally, no sensory deficits noted and gait normal Sensorium / Orientation: awake, alert, oriented to person, oriented to place and oriented to time Motor Exam: strength 5/5 throughout and strength abnormal Psych mental status grossly normal Skin no rashes or lesions noted and no wounds MDM MDM MDM Narrative Medical decision making narrative: Patient presents with inability p.m. last night. No prior history of retention. No prior episodes of retention. Tells me he had history of elevated PSA but then they (more content not included)... Normal [facility] Epithelial cells.squamous LM Ql (Urine sed)Ordered By: Duran Fabian on 11-02-2024 Epithelial cells.squamous LM.HPF (Urine sed) [#/Area] 0 /[HPF] 0-5 [facility] Estimation of creatinine reece aranceOrdered By: Duran Fabian on 11-02-2024 Estimated Creatinine Clearance Calc 92.20 ml/min 50-250 [facility] GFR/1.73 sq M.predicted bobby g non-blacks MDRD (S/P/Bld) [Vol rate/Area]Ordered By: Duran Fabian on 11-02-2024 Estimated GFR (MDRD) Non-Af Amer 93 >60 [facility] Comment on above: mL/min/1.73m2 CKD-EP I Creatinine Equation (2020) Glucose Ql (U)Ordered By: Zenaida Fabian on 11-02-2024 Urine Glucose (UA) Normal mg/dl Normal [facility] Ketones Test strip Ql (U)Ord ered By: Duran Unghayley on 11-02-2024 Ketones Ql (U) Negative Negative [facility] Microscopic analysis of urin e for red blood cells (RBC)Ordered By: Duran Fabian on 11-02-2024 Urine RBC 50-100 SEEN /hpf 0-5 [facility] Mucus LM Ql (Urine sed)Order ed By: Duran Fabian on 11-02-2024 Mucus Ql (Urine sed) 0 SEEN /hpf [facility] Nitrite Test strip Ql (U)Ord ered By: Duran Unghayley on 11-02-2024 Nitrite Ql (U) Negative Negative [facility] Potassium (Unsp spec) [Mass/ Vol]Ordered By: Duran Fabian on 11-02-2024 Potassium [Moles/Vol] 4.1 mmol/L 3.3-5.1 [facility] Protein Test strip Ql (U)Ord ered By: Duran Fabian on 11-02-2024 Protein Ql (U) 500 mg/dl High Negative [facility] Serum creatinine measurement (mass/volume)Ordered By: Duran Fabian on 11-02-2024 Creatinine [Mass/Vol] 0.84 mg/dL 0.70-1.20 [facility] Serum glucose measurement (m ass/volume)Ordered By: Duran Fabian on 11-02-2024 Glucose [Mass/Vol] 169 mg/dL High 70-99 [facility] Serum or plasma calcium manuel urement (mass/volume)Ordered By: Duran Fabian on 11-02-2024 Calcium [Mass/Vol] 9.1 mg/dL 7.6-11.0 [facility] Serum or plasma urea nitroge n measurement (mass/volume)Ordered By: Duran Unghayley on 11-02-2024 Urea nitrogen [Mass/Vol] 18 mg/dL 4-19 [facility] Sodium levelOrdered By: Jareth Fabian on 11-02-2024 Sodium [Moles/Vol] 136 mmol/L 133-145 [facility] Urinalysis, Completeon 11-02 WBC 10-25 SEEN Normal 0-5 [facility] Comment on above: Order Comment: COLOR OF URINE MAY AFFECT DIPSTICK RESULTS. CLEAN CATCH Performed By: #### L [id number] #### [facility] [address] [place], [address] RBC 50-100 SEEN Normal 0-5 [facility] Comment on above: Order Comment: COLOR OF URINE MAY AFFECT DIPSTICK RESULTS. CLEAN CATCH Performed By: #### L [id number] #### [facility] [address] [place], [address] BACTERIA 0 SEEN Normal None Seen [facility] Comment on above: Order Comment: COLOR OF URINE MAY AFFECT DIPSTICK RESULTS. CLEAN CATCH Performed By: #### L [id number] #### [facility] [address] [place], [address] EPI,SQUAMOUS 0 SEEN Normal 0-5 [facility] Comment on above: Order Comment: COLOR OF URINE MAY AFFECT DIPSTICK RESULTS. CLEAN CATCH Performed By: #### L [id number] #### [facility] [address] [place], [address] Mucus Ql (Urine sed) 0 SEEN Normal [facility] Comment on above: Order Comment: COLOR OF URINE MAY AFFECT DIPSTICK RESULTS. CLEAN CATCH Performed By: #### L [id number] #### [facility] [address] [place], [address] Urine blood detectionOrdered By: Remus Caren on 11-02-2024 Urine Occult Blood 250 /ul High Negative [facility] Urine clarityOrdered By: Rem us Unghayley on 11-02-2024 Clarity (U) Turbid Clear [facility] Urine color determinationOrd ered By: Remus Fabian on 11-02-2024 Color (U) Red Yellow [facility] Urine leukocyte esterase det ection by dipstickOrdered By: Remus Fabian on 11-02-2024 Leukocyte esterase Test strip Ql (U) 100 /ul High Negative [facility] Urine pHOrdered By: Duran Un gur on 11-02-2024 pH (U) 5.0 [pH] 5.0 - 8.0 [facility] Urine sediment bacteria coun t by microscopy (number/high power field)Ordered By: Duran Lopezhayley on 11-02-2024 Bacteria LM.HPF (Urine sed) [#/Area] 0 /[HPF] None Seen [facility] Urine specific gravity measu rementOrdered By: Duran Lopezhayley on 11-02-2024 Specific gravity (U) [Rel density] 1.020 1.002-1.030 [facility] Urobilinogen Ql (U)Ordered B y: Duran Lopezhayley on 11-02-2024 Urine Urobilinogen Normal mg/dl Normal [facility] White blood cell countOrdere d By: Duran Lopezhayley on 11-02-2024 Urine WBC 10-25 SEEN /hpf 0-5 [facility] No Panel InformationOrdered By: Dr. Araiza on 10-14-2022 Prostate Specific Antigen Total 9.42 ng/mL 0.0-4.0 [facility] Comment on above: This test was perfor med using the TPSA assay method for the[employer] chemistry system. Values obtained with differentassay methods cannot be used interchangably.When changing PSA assays in the course of monitoring apatient, additional sequential testing should be carriedout to confirm baseline values. Absolute lymphocyte counton 03-31-2022 Lymphocytes Auto (Unsp spec) [#/Vol] 1.59 10*3/uL 0.83-4.51 [facility] Work Phone: Basophil percentageon 2021 Basophils/100 WBC (Bld) 0.6 % 0-1 [facility] Work Phone: Bilirubin [Mass/Vol] 0.80 mg/dL 0.20-1.00 [facility] Work Phone: Comment on above: For patients on eltr ombopag therapy, use of Dimension Ewing TBIL is not recommended. Chloride [Moles/Vol] 105 mmol/L 98-107 [facility] Work Phone: Cholesterol [Mass/Vol] 239 mg/dL <200 [facility] Work Phone: [phone] Comment on above: <200 mg/dL Desirable 200-240 mg/dL Borderline >240 mg/dL High Risk Eosinophils/100 WBC (Bld) 4.9 % 0-5 [facility] Work Phone: [phone] Glucose [Mass/Vol] 109 mg/dL 74-106 [facility] Work Phone: [phone] Comment on above: Fasting Glucose resu lt from 100 to 125 mg/dL suggests IMPAIRED HOMEOSTASIS per A.D.A. criteria. Neutrophils (Bld) [#/Vol] 4.4 10*3/uL 2.0-7.7 [facility] Work Phone: Neutrophils/100 WBC (Bld) 60.6 % 47-70 [facility] Work Phone: Potassium [Moles/Vol] 3.9 mmol/L 3.5-5.1 [facility] Work Phone: [phone] Protein [Mass/Vol] 7.2 g/dL 6.4-8.2 [facility] Work Phone: [phone] Sodium [Moles/Vol] 140 mmol/L 136-145 [facility] Work Phone: [phone] Triglyceride [Mass/Vol] 138 mg/dL <199 [facility] Work Phone: Comment on above: The drugs N-Acetylcy steine and Metamizole may falsely depress this assay.Serum Triglycerides Reference Interval Normal <150 mg/dL Borderline high 150 - 199 mg/dL High 200 - 499 mg/dL Very High > or = 500 mg/dL WBC (Bld) [#/Vol] 7.2 10*3/uL 4.4-11.0 [facility] Work Phone: Blood erythrocytes count (nu mber/volume)on 03-31-2022 RBC (Bld) [#/Vol] 5.01 10*6/uL 4.6-6.2 [facility] Work Phone: Blood hemoglobin measurement (mass/volume)on 03-31-2022 Hemoglobin (Bld) [Mass/Vol] 15.1 g/dL 13.0-16.5 [facility] Work Phone: Blood lymphocytes/100 leukoc yteson 03-31-2022 Lymphocytes/100 WBC (Bld) 22.1 % 19-41 [facility] Work Phone: [phone] Blood monocytes/100 leukocyt eson 03-31-2022 Monocytes/100 WBC (Bld) 11.4 % 0-10 [facility] Work Phone: Blood platelet mean volumeon 03-31-2022 Platelet mean volume (Bld) [Entitic vol] 9.2 fL 6.2-12.0 [facility] Work Phone: Determination of erythrocyte mean corpuscular volume (MCV)on 03-31-2022 MCV (RBC) [Entitic vol] 91.8 fL 80-94 [facility] Work Phone: [phone] Hematocrit Auto (Bld) [Volum e fraction]on 03-31-2022 Hematocrit (Bld) [Volume fraction] 46.0 % 40-54 [facility] Work Phone: Laboratory - Chemistry and C hemistry - challengeon 03-31-2022 ALP [Catalytic activity/Vol] 54 U/L 45-117 [facility] Work Phone: ALT [Catalytic activity/Vol] 22 U/L 16-61 [facility] Work Phone: CO2 [Moles/Vol] 27.0 mmol/L 21.0-32.0 [facility] Work Phone: [phone] Globulin (S) [Mass/Vol] 3.6 g/dL 2.2-4.2 [facility] Work Phone: Urea nitrogen/Creatinine [Mass ratio] 21.9 mg/mg 10-20 [facility] Work Phone: Laboratory - Hematology and Cell countson 03-31-2022 Erythrocyte distribution width (RBC) [Entitic vol] 42.8 fL 35.1-43.9 [facility] Work Phone: [phone] Erythrocyte distribution width (RBC) [Ratio] 12.8 % 11.6-14.6 [facility] Work Phone: [phone] Immature granulocytes/100 WBC (Bld) 0.400 % 0.0-0.9 [facility] Work Phone: [phone] Comment on above: IG% - Immature Granu locytes (promyelocytes, myelocytes and metamyelocytes) > 1% indicates that a LEFT SHIFT is Present. MCH (RBC) [Entitic mass] 30.1 pg 27.0-32.0 [facility] Work Phone: [phone] Nucleated RBC/100 WBC (Bld) [Ratio] 0 % 0-5 [facility] Work Phone: [phone] MCHC Auto (RBC) [Mass/Vol]on 03-31-2022 MCHC (RBC) [Mass/Vol] 32.8 g/dL 32-36 [facility] Work Phone: [phone] No Panel Informationon 03-31 Estimated GFR (MDRD) Amer 100 mL/min >60 [facility] Work Phone: Comment on above: GFR Calc Estimated GFR (MDRD) Non-Af Amer 83 mL/min >60 [facility] Work Phone: [phone] Comment on above: Non- GFR Calc Prostate Specific Antigen Screen 9.00 ng/mL 0.00-4.00 [facility] Work Phone: [phone] Comment on above: This test was perfor med using the TPSA assay method for the[facility] chemistry system. Values obtained with differentassay methods cannot be used interchangably.When changing PSA assays in the course of monitoring apatient, additional sequential testing should be carriedout to confirm baseline values. Platelets bldon 03-31-2022 Platelets (Bld) [#/Vol] 271 10*3/uL 150-450 [facility] Work Phone: [phone] Serum or plasma albumin manuel urement (mass/volume)on 03-31-2022 Albumin [Mass/Vol] 3.6 g/dL 3.2-5.0 [facility] Work Phone: Serum or plasma albumin/glob ulin mass ratioon 03-31-2022 Albumin/Globulin [Mass ratio] 1.0 {ratio} 0.9-2.4 [facility] Work Phone: Serum or plasma calcium manuel urement (mass/volume)on 03-31-2022 Calcium [Mass/Vol] 9.3 mg/dL 8.5-10.1 [facility] Work Phone: Serum or plasma cholesterol in HDL measurement (mass/volume)on 03-31-2022 Cholesterol in HDL [Mass/Vol] 67 mg/dL >40 [facility] Work Phone: Comment on above: The drugs N-Acetylcy steine and Metamizole may falsely depress this assay. Reference Range HDL <40 mg/dL Low HDL Cholesterol HDL >or= 60 mg/dL High HDL Cholesterol Serum or plasma cholesterol in VLDL measurement (mass/volume)on 03-31-2022 Cholesterol in VLDL [Mass/Vol] 28 mg/dL 5-40 [facility] Work Phone: Serum or plasma creatinine m easurement (mass/volume)on 03-31-2022 Creatinine [Mass/Vol] 0.96 mg/dL 0.70-1.30 [facility] Work Phone: Comment on above: The validity of the calculated GFR & GFRAA in patients over 70 years has not been determined. Clinical correlation is essential. Serum or plasma low density lipoprotein (LDL) cholesterol measurement (mass/volume)on 03-31-2022 Cholesterol in LDL [Mass/Vol] 144 mg/dL 0-130 [facility] Work Phone: Serum or plasma urea nitroge n measurement (mass/volume)on 03-31-2022 Urea nitrogen [Mass/Vol] 21 mg/dL 7-18 [facility] Work Phone: Thin prep Papanicolaou smear with manual screeningon 03-31-2022 Thin prep Papanicolaou smear with manual screening 13 U/L 15-37 [facility] Work Phone: Thin prep Papanicolaou smear with manual screening 8 5-15 [facility] Work Phone: Vital Signs Date Time Vital Sign Value Performing Clinician Renuka henao 11-13-2024 06:38-0400 Body temperature 97.8 [degF] Dr. Carmen Araiza DO Work Phone: [facility] 11-13-2024 06:38-0400 Diastolic blood pressure 78 mm[Hg] Dr. Carmen Araiza DO Work Phone: [facility] 11-13-2024 06:38-0400 Heart rate 81 /min Dr. Carmen Araiza DO Work Phone: [facility] 11-13-2024 06:38-0400 Respiratory rate 16 /min Dr. Carmen Araiza DO Work Phone: [facility] 11-13-2024 06:38-0400 SaO2% (BldA) [Mass fraction] 99 % Dr. Carmen Araiza DO Work Phone: [facility] 11-13-2024 06:38-0400 Systolic blood pressure 148 mm[Hg] Dr. Carmen Araiza DO Work Phone: [facility] 11-13-2024 05:18-0400 Body height 177.[address] Carmen Araiza DO Work Phone: [facility] 11-13-2024 05:18-0400 Body mass index (BMI) [Ratio] 28.8 kg/m2 Dr. Carmen Araiza DO Work Phone: [facility] 11-13-2024 05:18-0400 Body weight [address] Carmen Araiza DO Work Phone: [facility] 11-02-2024 09:44-0400 Body temperature 97.7 [degF] Dr. Carmen Araiza DO Work Phone: [facility] 11-02-2024 09:44-0400 Diastolic blood pressure 91 mm[Hg] Dr. Carmen Araiza DO Work Phone: [facility] 11-02-2024 09:44-0400 Heart rate 82 /min Dr. Carmen Araiza DO Work Phone: [facility] 11-02-2024 09:44-0400 Respiratory rate 16 /min Dr. Carmen Araiza DO Work Phone: [facility] 11-02-2024 09:44-0400 SaO2% (BldA) [Mass fraction] 96 % Dr. Carmen Araiza DO Work Phone: [facility] 11-02-2024 09:44-0400 Systolic blood pressure 150 mm[Hg] Dr. Carmen Araiza DO Work Phone: [facility] 11-02-2024 07:42-0400 Body height 177.[address] Carmen Araiza DO Work Phone: [facility] 11-02-2024 07:42-0400 Body mass index (BMI) [Ratio] 29.2 kg/m2 Dr. Carmen Araiza DO Work Phone: [facility] 11-02-2024 07:42-0400 Body weight 92.[address] Carmen Araiza DO Work Phone: [facility] Encounters Encounter Date Encounter Type Care Provider Facility Start: 12-05-2024 End: 12-05-2024 Emergency department patient visit Carmen Araiza Facility:[facility] Start: 11-30-2024 End: 12-03-[address] SANNA THAPA MD Facility:[facility] Start: 11-27-2024 End: 11-27-[address] SANNA THAPA MD Facility:[facility] Start: 11-13-2024 End: 11-13-2024 Emergency department patient visit Dr. Carmen Araiza DO Work Phone: -Emergency Department Work Phone: Start: 11-02-2024 End: 11-02-2024 Emergency department patient visit Dr. Carmen Araiza DO Work Phone: -Emergency Department Work Phone: Start: 10-14-2022 End: 10-14-2022 ambulatory [facility] Work Phone: Start: 10-14-2022 End: 10-14-2022 Patient encounter procedure [facility], June Landrum [facility] Start: 03-31-2022 End: 03-31-2022 Patient encounter procedure [facility], [place] Plan of Treatment Date Care Activity Detail Author Start: 11-13-2024 [facility] Start: 11-02-2024 [facility] Patient Education [facility] Work Phone: Patient referral [facility] Work Phone: Payers Date Payer Category Payer Unknown [id number] 2024 Medicaid [id number] 18 [id number] 2024 Self-pay [id number] 2024 Unknown [id number] 117 [id number] 1955 Unknown [id number] .. [id number] 1955 Unknown [id number] Unknown [id number] Unknown [id number] Unknown [id number] Unknown [id number] [id number] Social History Date Type Detail Facility Tobacco smoking stat us NHIS Unknown if ever smoked [facility] Work Phone: Start: 1955 Sex Assigned At Male [facility] Start: 11-02-2024 End: 11-13-2024 Tobacco smoking status NHIS Never smoked tobacco (finding) [facility] Start: 11-02-2024 End: 11-13-2024 Sex Male (finding) [facility] Evaluation note Note Date & Type Note Facility Evaluation note No assessment information availa ble [facility] Work Phone: Hospital Discharge instructions Note Date & Type Note Facility Hospital Discharge instructions Additional Instructions Leave the catheter in place. Call and follow-up with your urologist Dr. Nicholas Thapa soon as possible. Looks like you have a urinary tract infection. Will send a urine culture. You will be started on the antibiotics Cipro 1 pill twice a day for 10 days. Your prescription was sent to [facility] Work Phone: Reason for referral (narrative) Note Date & Type Note Facility Reason for referral (narrative) No reason for referral information available [facility] Work Phone: Chief Complaint and Reason for Visit Chief Complaint Admit Date inability to urinate November 02, 2024 7: 41am Chief Complaint Admit Date inability to urinate November 02, 2024 7: 41am urinary retention November 13, 2024 5:18 am Advance Directives No Advanced Directives Records Found Advance Directive Response Recorded Date/ Time Living Will Yes November 02, 2024 9:02am Do you have a Healthcare Power of Wood Boring Machine Operator? Yes November 02, 2024 9:02am Name of Medical Power of Wood Boring Machine Operator PASTORA DÍAZ November 02, 2024 9:02am Advance Directive Response Recorded Date/ Time Living Will Yes November 02, 2024 9:02am Do you have a Healthcare Power of Wood Boring Machine Operator? Yes November 02, 2024 9:02am Name of Medical Power of Wood Boring Machine Operator PASTORA KAN FE November 02, 2024 9:02am Living Will Yes November 13, 2024 5:18am Do you have a Healthcare Power of Wood Boring Machine Operator? Yes November 13, 2024 5:18am Name of Medical Power of Wood Boring Machine Operator November 13, 2024 5:18am Summary Purpose Family History No Family History Records FoundNo Family History Records Found Additional Source Comments Goals (unrecognized section and content) Goals may be documented in a n alternate sectionGoals may be documented in an alternate sectionGoals may be documented in an alternate sectionGoals may be documented in an alternate section Care Teams (unrecognized sec tion and content) Team Status: Active Member Role Status Dates Dr. Carmen Araiza DO Family Provider Active Dr. Carmen Araiza DO Primary Care Provider Active Team Status: Inactive Member Role Status Dates Dr. Carmen Araiza DO Primary Care Provider, Attendin g Provider Active Team Status: Active Member Role Status Dates Dr. Carmen Araiza DO Primary Care Provider Active Team Status: Inactive Member Role Status Dates Dr. Carmen Araiza DO Primary Care Provider Active Start: November 02, 2024 End: November 02, 2024 Dr. Duran Fabian DO Emergency Provider Active S tart: November 02, 2024 End: November 02, 2024 Team Status: Inactive Member Role Status Dates Dr. Carmen Araiza DO Primary Care Provider Active Start: November 02, 2024 End: November 02, 2024 Dr. Duran Fabian DO Attending Provider Active S tart: November 02, 2024 End: November 02, 2024 Dr. Duran Fabian DO Emergency Provider Active S tart: November 02, 2024 End: November 02, 2024 Team Status: Inactive Member Role Status Dates Dr. Carmen Araiza DO Primary Care Provider Active Start: November 13, 2024 End: November 13, 2024 Dr. Evens Portillo MD Emergency Provider Active S tart: November 13, 2024 End: November 13, 2024 (unrecognized sect ion and content) No Status Records FoundNo Status Records Found INFORMATION SOURCE (unrecogn ized section and content) DATE CREATED AUTHOR 12/11/2024 [facility] DATE CREATED AUTHOR AUTHOR'Kathy CARRASQUILLO 02/09/2025 [facility] FOR RECORDS PERTAINING TO PATIENTS WHO ARE OR HAVE BEEN ENROLLED IN A CHEMICAL DEPENDENCY/SUBSTANCEABUSE PROGRAM, SOME INFORMATION MAY BE OMITTED. This clinical summary was aggregated from multiple sources. Caution should be exercised in using it in the provision of clinical care. This summary normalizes information from multiple sources, and as a consequence, information in this document may materially change the coding, format and clinical context of patient data. In addition, data may be omitted in some cases. CLINICAL DECISIONS SHOULD BE BASED ON THE PRIMARY CLINICAL RECORDS. [employer] [facility]. provides no warranty or guarantee of the accuracy or completeness of information in this document.
== END | disposition home or self-care (01) ==
LOC: LAB 12:01
PROVIDERS: PCP Family Medicine; Referring Provider Urology; Visit Provider Urology
DX: Z12.5 Encounter for screening for malignant neoplasm of prostate (principal)
CPT/HCPCS: 36415; 84153; G0103